=== PATIENT | male | born 1980 | race Caucasian/White ===

== ENCOUNTER → 2017-12-05 07:50 | Outpatient (CLI) | payer OTHER, SELFPAY ==
[2017-12-05 12:02] LABS: Anion Gap 10 (5-15); BUN 15 mg/dL (7-18); BUN/Creat Ratio 16.2 RATIO (10-20); Calcium,Total 8.1 mg/dL (8.5-10.1); Chloride 106 mmol/L (98-107); Cholesterol 157 mg/dL (200); Creatinine, Serum 0.92 mg/dL (0.70-1.30); EST Glomerular Filtration Rate 97 mL/min (>60); Est Glom Filt Rate - Afr Amer 117 mL/min (>60); Glucose 105 mg/dL (74-106); High Density Lipoprotein 30 mg/dL; Potassium 4.2 mmol/L (3.5-5.1); Sodium Level 142 mmol/L (136-145); Triglycerides 247 mg/dL; Very Low Density Lipoprotein 49 mg/dL (5-40)
== END ==
PROVIDERS: Family Provider Family Medicine; PCP Family Medicine; Visit Provider Family Medicine
DX: Z00.00 Encounter for general adult medical examination without abnormal findings (principal)
CPT/HCPCS: 36415; 80048; 80061

== ENCOUNTER 2018-01-30 09:33 | Day surgery (SDC) | payer OTHER, SELFPAY ==
[2018-01-30] VITALS (7 sets, daily range): BP systolic 117–139; BP diastolic 75–97; PULSE 60–76; RESP 14–16; TEMP 36.3–36.6; O2SAT 93–100; BMI 31.3
--- NOTE | 2018-01-30 10:30 | COLBX_PTH ---
PATIENT: SANTIAGO OLSON LOC: EN U#:[id number] AGE/SX: 37/M ROOM: RE01/30/[address]: Dr. Giorgi Nolasco MD : 1980 BED: DIS: 01/30/2018 SPEC #: [id number] RECD: 01/30/18 13:53 STATUS: JAMIN MARY #: [id number] MARCY: 01/30/18 10:[address]: Giorgi Nolasco DEPT: SURGICAL PATHOLOGY RECD BY: Godwin Sanchez ENTERED: 01/30/18 13:53 SP TYPE: COLON BX CAESAR DR: Dr. Manish Colon MD Tissues: A - Descending colon B - Sigmoid colon biopsy Procedures: Surgery Specimen Level IV HEADER OPERATION: Colonoscopy PRE-OP DIAGNOSIS: Rectal bleeding; change in bowel habit; family history of colon CA; grade 3 hemorrhoids TISSUE SUBMITTED: A ? Biopsy of descending colon polyp, B ? Sigmoid biopsy MICROSCOPIC DIAGNOSIS A. Descending colon polyp, biopsy: Fragments of tubular adenoma. B. Sigmoid colon, biopsy: No significant pathologic change. No evidence of colitis. AM:azeb 01/31/18 MICROSCOPIC DESCRIPTION Slides are reviewed. GROSS DESCRIPTION A - Received in fixative is one container labeled with the patient's name and designated descending colon polyp. The specimen consists of multiple irregular fragments of light herrera soft tissue that in aggregate measure 1 x 0.5 x 0.1 cm. The specimen is totally submitted in one cassette. B - Received in fixative is one container labeled with the patient's name and designated sigmoid biopsy. The specimen consists of two irregular fragments of light herrera soft tissue that in aggregate measure 0.6 x 0.5 x 0.1 cm. The specimen is totally submitted in one cassette. / AM:azeb 01/30/18 TC:5 [facility]: [id number] x2
--- NOTE | 2018-01-30 11:02 | PCM.OPRPT ---
Problem List (1) Family history of colon cancer in mother Status: Acute (2) Rectal bleeding Status: Acute Report of Operation Date of Procedure: 01/30/18 Pre-Operative Diagnosis: Change of bowel habits, rectal bleeding, family history of colon cancer in his mother Post-Operative Diagnosis: Grade 3 internal and external hemorrhoids. Sessile polyp of the descending colon. Sigmoid diverticulosis Surgery/Procedure Performed:: Colonoscopy with cold forcep biopsy and polypectomy Description of Surgical Findings:: Timeout and informed consent was obtained. 37-year-old gentleman was taken to the endoscopy suite. He was placed in a left lateral decubitus position. Throughout the procedure in aliquots he received a total of 150 mg Demerol and 5 mg of Versed is intravenous sedation. Digital rectal exam performed. Grade 3 internal hemorrhoids though without active bleeding. 2+ smooth prostate. Flexible colonoscope inserted the rectum and advanced readily throughout the sigmoid colon. It was advanced to the transverse colon and with transabdominal pressure was nicely advanced to the cecum. The cecum ileocecal valve area was nicely achieved bowel prep was good. There was still some liquid stool but that could be aspirated. The scope was carefully withdrawn from the ascending and transverse colon. In the descending colon a diminutive sessile 7 mm diameter polyp was identified. Photographs obtained. Cold forceps were used to sample and eradicate this lesion. Hemostasis was intact. The scope was then further withdrawn. There was sigmoid diverticulosis but no active inflammation. In the mid sigmoid there was a slight erythema of the mucosa. [place] likely to be secondary to the bowel prep but a mucosal biopsy with cold forceps was obtained. The scope was further withdrawn and retroflexed within the rectum. Some exuberant hemorrhoidal tissue noted particularly from internally. Excess fluid and air was aspirated free the procedure was completed with the patient tolerated it well. Impression Sessile polyp the descending colon pathology pending. Family history of colon cancer in her mother. Sigmoid diverticulosis Mild erythema of the sigmoid mucosa with cold forcep biopsy pending Significant internal hemorrhoids likely source of rectal bleeding Based upon family history will recommend follow-up colonoscopy in no greater than 5 years pending pathology on the polyp. We will recommend conservative measures for the internal hemorrhoids. If bleeding persists would recommend considering either a PPH hemorrhoidal pexy versus surgical hemorrhoidectomy. No previous colonoscopy. Medications were given at 1043. The procedure was started at 1046. The cecum was reached at 1050. The procedure was completed at 1057. Cc: Dr. Manish Nolasco M.D., F.A.C.S. Type of Anesthesia:: IV Sedation
== END 2018-01-30 11:57 | disposition home or self-care (01) ==
LOC: EN 09:34 → AC 09:35
PROVIDERS: Family Provider Family Medicine; PCP Family Medicine; Visit Provider Surgery
PROC: 0DJD8ZZ Inspection of Lower Intestinal Tract, Via Natural or Artificial Opening Endoscopic (ICD-10-PCS; CPT 45378; principal; 2018-01-30 10:25)
DX: D12.4 Benign neoplasm of descending colon (principal); K64.2 Third degree hemorrhoids; K57.30 Diverticulosis of large intestine without perforation or abscess without bleeding; K62.5 Hemorrhage of anus and rectum; R19.4 Change in bowel habit; F17.200 Nicotine dependence, unspecified, uncomplicated; Z80.0 Family history of malignant neoplasm of digestive organs
CPT/HCPCS: 45380; 88305; 99152; 99153

== ENCOUNTER → 2018-03-28 17:45 | Outpatient (CLI) | payer OTHER, SELFPAY ==
--- NOTE | 2018-03-28 17:48 | CT_ITS ---
STUDY: CT TEMPORAL BONES WITHOUT CONTRAST - ATTN: I.A.C. S REASON FOR EXAM: Male, 37 years old. CHOLESTEATOMA LEFT EAR RADIATION DOSAGE (If Supplied By Facility): CTDIvol = ( 67.58 ) mGy, DLP = ( 641.59 ) mGycm TECHNIQUE: The patient was scanned in a multi detector CT scanner. Transaxial imaging was performed without the administration of intravenous contrast material. Sagittal and coronal images were reconstructed. Individualized dose optimization techniques were used for this CT. COMPARISON: None. FINDINGS: There is mild maxillary sinus disease. RIGHT TEMPORAL BONE Normal right internal auditory canal. Normal visualized ossicles and tympanic cavity. Normal right cochlea and semicircular canals. Normal vestibular aqueduct. Normal right petrous carotid artery. Normal right jugular fossa. Normal right mastoid air cells. Normal right petrous apex. LEFT TEMPORAL BONE Normal left internal auditory canal. Normal visualized ossicles and tympanic cavity. Normal left cochlea and semicircular canals. Normal vestibular aqueduct. There is fluid in the left middle ear. There is no erosion of the scutum. Normal left petrous carotid artery. Normal right jugular fossa. There are minimal scattered inflammatory changes of the left mastoid air cells consistent with mild chronic otomastoiditis. Normal left petrous apex. CT/Orb Sella Post Fossa Ear w/o IMPRESSION: Left mastoiditis. Left otitis media. No evidence for cholesteatoma. Electronically Signed: Bernardo Barry MD at 19:42 EDT , Service support ,
== END ==
PROVIDERS: Family Provider Family Medicine; PCP Family Medicine; Referring Provider Otolaryngology; Visit Provider Otolaryngology
DX: H71.02 Cholesteatoma of attic, left ear (principal); H70.12 Chronic mastoiditis, left ear; H66.92 Otitis media, unspecified, left ear
CPT/HCPCS: 70480

== ENCOUNTER 2018-05-02 05:25 | Day surgery (SDC) | payer OTHER, SELFPAY ==
[2018-04-20 12:28] VITALS: BP 118/63; PULSE 69; RESP 16; TEMP 36.6; O2SAT 93; BMI 31.0
[2018-05-02] VITALS (7 sets, daily range): BP systolic 124–160; BP diastolic 75–89; PULSE 76–92; RESP 15–16; TEMP 36.9–37.4; O2SAT 90–94; BMI 31.5
--- NOTE | 2018-05-02 07:30 | CHO_PTH ---
PATIENT: SANTIAGO OLSON LOC: [facility] – [place], [place] U#:[id number] AGE/SX: 37/M ROOM: RE05/02/[address]: Dr. Nahid Macias MD : 1980 BED: DIS: 05/02/2018 SPEC #: [id number] RECD: 05/02/18 11:52 STATUS: JAMIN MARY #: [id number] MARCY: 05/02/18 07:[address]: Nahid Macias DEPT: SURGICAL PATHOLOGY RECD BY: Betsy Oviedo Tissues: Soft tissues, NOS Procedures: Decalcification bone/plaque Surgery Specimen Level III HEADER OPERATION: Tympanomastoidectomy, left ear PRE-OP DIAGNOSIS: Cholesteatoma of attic, left ear, conductive hearing loss, left ear, dysfunction of eustachian tube, left ear TISSUE SUBMITTED: Cholesteatoma, left ear MICROSCOPIC DIAGNOSIS Cholesteatoma of left ear, excision: Fragments of cholesteatoma with associated acute inflammation. Fragment of nerve. Fragments of bone with no pathologic change. AM:azeb 05/03/18 COMMENT Case has been reviewed in consultation with Dr. Ibarra who concurs with the above diagnosis. IDC:GUSTAVO MICROSCOPIC DESCRIPTION Slides are reviewed. GROSS DESCRIPTION Received in fixative is one container labeled with the patient's name and designated Cholesteatoma, left ear. The specimen consists of multiple irregular fragments of herrera-white to pink soft tissue that in aggregate measure 1.5 x 1.5 x 0.3 cm. The entire specimen is submitted in one cassette after light decalcification. / GUSTAVO:azeb 05/02/18 TC:5 CPT: 90113, 25559
[2018-05-02] MEDS: Bacitracin 500 UNITS/GM PACKET ×2 (09:30→09:31)
--- NOTE | 2018-05-02 10:28 | PCM.OPRPT ---
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 Volumetric assessment showed large conductive hearing loss and significant ossicular chain erosion on the CT scan was noted in the above procedures offered for relief as this caused him pain and drainage as well as the hearing loss. The risks, alternatives, potential benefits, and complications were discussed at length and any questions answered to the patient and/or caregiver's satisfaction. Witnessed informed consent was obtained in the office, and the patient and/or caregiver was agreeable to proceed. Procedure went as follows: The patient was identified in the preoperative holding brought to the operating room and was placed under general anesthesia and intubated. The operative ear had been site marked preoperatively in accordance with the office notes patient exam and history. The patient was then placed under general anesthesia and the left ear prepped and draped in usual sterile fashion. The facial nerve monitoring electrodes were then placed in the confirmed to be operational in accordance with the manufactures directions. The planned postauricular incision site for fascial graft harvest was then injected with 1% lidocaine with 100,000 epinephrine for a total of 5 mL. Through a #4 otic speculum the operative microscope was brought into the field and the external auditory canal and tympanic membrane visualized. The lateral canal wall was then injected with 1% lidocaine with 100,000 epinephrine for a total of 0.5 cc. Using a sickle knife the edge of the perforation was then sharply resected and withdrawn from the ear canal with a cup forceps. There is noted to be deep retraction into the attic and a large cholesteatoma. Using a round knife a vascular strip incision was then created and the skin flap developed toward the annulus. The middle ear cleft was then entered with a curved pick and the annulus elevated with the annulus elevator. This was then draped anteriorly to allow visualization of the middle ear cleft which is noted to be filled with granulation tissue and cholesteatoma. Epinephrine soaked cotton balls and placed for hemostasis and attention turned to the posterior auricular incision. A 6 cm incision was then created a 15 blade scalpel posterior to the auricle at the previous injection site. The skin and subcutaneous tissues were then dissected and the posterior auricular muscle sharply transected. The subfascial plane was then widely developed any 2.5 x 2.5 centimeter portion of loose areolar tissue then harvested and set aside on a Salvador block for reconstruction of the tympanic membrane. The wound edges were then cauterized. An incision was then made along the temporal line with the monopolar cautery 4 cm in length with an additional descending limb to the mastoid tip. Using a [place] elevator a periosteal flap was then elevated posteriorly and superiorly. Anteriorly the periosteal flap was developed with a [place] elevator and the self retraining retractor was then placed. Dissection was then carried down along the posterior aspect of the external auditory canal and the previously incised flap was then elevated with the retractor. A mastoidectomy was then carried out starting with a #6 cutting bur followed by a #4 jennifer. There is known to be extensive cholesteatoma filling the attic with erosion of the ossicles. Dissection was carried down along the posterior canal wall and the facial nerve identified and preserved this was confirmed with stimulation. The posterior canal wall was then removed and the chorda tympani which was densely involved with cholesteatoma was sacrificed and the facial ridge taken down low along the course of the facial nerve. The stapes superstructure was examined with the capitulum was noted to be absent however the anterior and posterior crura remained present. In the stasis was achieved by placement of cotton ball soaked with epinephrine. After removal the middle ear space was then examined. The middle ear space was then cleaned of granulation tissue and cholesteatoma and the previously harvested fascia graft was then placed in an underlay fashion over the residual stapes superstructure after filling the middle ear cleft and eustachian tube with Gelfoam packing material. Additional Gelfoam was then placed overlying the tympanic membrane reconstruction with the fascia graft. Meatal plasty incisions were then made through the auricular cartilage and the wound closed with interrupted 3-0 Vicryl sutures followed by running 5-0 Monocryl to the skin. Bacitracin ointment was then applied lateral to the graft and an Ambrus ear pack placed within the lateral canal to stent the meatal plasty. The patient then cleaned of prep solution and the facial nerve monitoring electrodes removed. The patient was then returned to anesthesia, revived and extubated without complication having tolerated the procedure well. Type of Anesthesia:: General Anesthesiologist: Luis Alberto Wong Special Medications: none Specimen's removed: cholesteatoma Drains: none Estimated Blood Loss (mL): 25 mL Fluids Replaced: 1000 mL Grafts/Implants Used: none - Complications none - Admit VTE Documentation VTE Present on Admission: No VTE Mechan Device Prophylaxis: SCD's VTE Pharm Prophylaxis ordered?: No
--- NOTE | 2018-05-02 10:40 | DCINST_ITS ---
- Discharge Diagnoses Current Active Problems: Current Active and Chronic Problems (Last Updated 01/25/18 @ 07:45 by Lora Salmeron) 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 (Chronic) You will use the following diet at home:: No restrictions Discharge Activity: Return to Normal Activity Call your doctor if your incision/area has: Continuous Slow Oozing, Increased Pain/ Swelling, Foul Smelling Discharge, Swelling at the incision site Call your doctor if you observe: Fever of 101 or Higher, Uncontrolled pain Cleanse incision/area with: Do not get Incision Wet, Keep Dressing Clean & Dry Allergies/Adverse Reactions: Allergies No Known Allergies Allergy (Verified 04/13/18 14:03) Medications to take at Discharge varenicline 1 mg tablet 1 mg PO BID 01/25/18 Primary Care Physician: Manish Colon MD [Primary Care Provider] - Test Results: Test results from this visit will be discussed in further detail at your follow- up appointment, if applicable. Please Follow Up With: Nahid Macias MD When: 5 days
--- OUTSIDE RECORDS SUMMARY | 2018-06-27 11:06 | XMS RPT_ITS ---
:1980 Author Organization OHIP Support Name Relationship Address Phone AKBAR, DHEERAJ Unavailable [address] + [place] [address] JOSE PATTON Unavailable Unavailable + [place] [address] S Unavailable Unavailable Unavailable AKBAR, DHEERAJ Unavailable [address] + [place] [address] KAROLYN PATTONKI Unavailable . + [place] [address] S Unavailable Unavailable Unavailable AKBAR, DHEERAJ Unavailable [address] + [place] [address] JOSE PATOTN Unavailable Unavailable + S Unavailable Unavailable Unavailable AKBAR, DHEERAJ Unavailable [address] + [place] [address] S Unavailable Unavailable Unavailable AKBAR, DHEERAJ Unavailable [address] + [place] [address] S Unavailable Unavailable Unavailable AKBAR, DHEERAJ Unavailable [address] + [place] [address] S Unavailable Unavailable Unavailable AKBAR, DHEERAJ Unavailable [address] + [place] [address] S Unavailable Unavailable Unavailable AKBAR, DHEERAJ Unavailable [address] + [place] [address] S Unavailable Unavailable Unavailable Care Team Providers Name Role Phone Giorgi Nolasco Attending Unavailable Manish Colon Referring Unavailable Manish Colon Attending Unavailable Manish Colon Referring Unavailable Manish Colon Primary Care Unavailable Giorgi Nolasco Attending Unavailable Manish Colon Referring Unavailable Manish Colon Primary Care Unavailable Giorgi Nolasco Attending Unavailable Manish Colon Primary Care Unavailable Giorgi Nolasco Referring Unavailable Giorgi Nolasco Attending Unavailable Giorgi Nolasco Referring Unavailable Manish Colon Primary Care Unavailable Giorgi Nolasco Consulting Unavailable Macias, Nahid Attending Unavailable Macias, Nahid Referring Unavailable Manish Colon Primary Care Unavailable Cebul, Giorgi Attending Unavailable Cebul, Giorgi Referring Unavailable Manish Colon Primary Care Unavailable Macias, Nahid Attending Unavailable Macias, Nahid Referring Unavailable Manish Colon Primary Care Unavailable PROBLEMS PROBLEMS DATE TYPE CONDITION / CODE ATTENDING STATUS SOURCE 05/21/2018 Unknown G89.18 - Other acute Giorgi Nolasco Active [facility] / G89.18(ICD-10) Hospital Repository 05/02/2018 Unknown Z01.818 - Encounter Nahid Macias Active [place] for other Community preprocedural Hospital examination / Repository Z01.818(ICD-10) 01/25/2018 Unknown K62.5 - Hemorrhage Giorgi Nolasco Active [place] of anus and rectum / Community K62.5(ICD-10) Hospital Repository 01/25/2018 Unknown Z80.0 - Family Giorgi Nolasco Active [place] history of malignant Community neoplasm of Hospital digestive organs / Repository Z80.0(ICD-10) 01/25/2018 Unknown Z72.0 - Tobacco use Giorgi Nolasco Active [place] / Z72.0(ICD-10) [facility] Hospital Repository 01/25/2018 Unknown R19.4 - Change in CeGiorgi spain Active [place] bowel habit / Community R19.4(ICD-10) Hospital Repository 01/25/2018 Unknown K64.2 - Third degree CebuGiorgi solares Active [place] hemorrhoids / Community K64.2(ICD-10) Hospital Repository 12/05/2017 Unknown Z00.00 - Encounter Manish Colon for general adult [facility] medical examination Hospital without abnormal Repository findings / Z00.00(ICD-10) PROCEDURES PROCEDURES No Procedure Records FoundRESULTS RESULTS DISCHARGE INSTRUCTION Observed: 05/21/2018 Status: F Source: [place] 5:29 PM [facility] REPOSITORY [facility] Medical Records Department [address] [place] [address] Instructions for Home/Discharge Instructions 05/21/18 0933 MR#: [id number] Acct: [id number] Name: SANTIAGO OLSON Rep #: [id number] : 1980 37 From: Giorgi Nolasco MD PCP: Manish Colon MD Status: DEP [facility] Discharge Diet: No Restrictions Discharge Activity: Return to Normal Activity, May Not Drive - while you are taking narcotic pain medications. Do not drive, work with heavy equipment or sign legal documents for 24 hours after your surgery. Additional Activity Instructions:: Please do not drive while taking narcotic pain medicine. Please take a daily fiber supplement. Please take 1 ounce of mineral oil in food or juice daily. You may utilize a sitz bath's of warm soapy water at 20 minutes per occasion as needed for comfort and hygiene. You may remove the Vaseline gauze dressing tomorrow morning. You may utilize dry gauze covered dressings Additional Dressing/Incision Instructions:: L Allergies/Adverse Reactions: Allergies No Known Allergies Allergy (Verified 05/14/18 14:57) Medications to take at Discharge varenicline 1 mg tablet 1 mg PO BID 01/25/18 Ibuprofen [Motrin] 400 mg PO Q6 PRN 05/14/18 Hydrocodone Bitart/Apap 5-325 [[place] 5MG-325MG] 1 tablet PO Q4H PRN PRN 5 Days #20 tablet 05/21/18 The following prescriptions were given: Hydrocodone Bitart/Apap 5-325 [[place] 5MG-325MG] 1 tablet PO Q4H PRN PRN 5 Days #20 tablet PRN Reason: Pain Primary Care Physician: Manish Colon MD [Primary Care Provider] - Test Results: Test results from this visit will be discussed in further detail at your follow-up appointment, if applicable. Please Follow Up With: Giorgi Nolasco MD - [phone] When: Plan to have a follow up approximately 3 weeks after surgery. 05/21/18 1729 <Electronically signed by Giorgi Nolasco MD> Date Giorgi Nolasco MD CC: Manish Colon MD OPERATIVE REPORT Observed: 05/21/2018 Status: F Source: [place] 5:29 PM [facility] REPOSITORY [facility] Medical Records Department [address] [place] [address] [place] [address] Operative Report 05/21/18 1042 MR#: [id number] Acct: [id number] Name: SANTIAGO OLSON Rep #: [id number] : 1980 37 From: Giorgi Nolasco MD PCP: Manish Colon MD Status: DEP [facility] Y Location: [facility] Problem List (1) Hemorrhoids Status: Acute Qualifiers: Hemorrhoid type: third degree Report of Operation Date of Procedure: 05/21/18 Pre-Operative Diagnosis: Bleeding internal and external hemorrhoids Post-Operative Diagnosis: Same Surgery/Procedure Performed:: Hemorrhoidectomy Description of Surgical Findings:: Timeout and informed consent was obtained. 37-year-old gent was taken to the operating room. He was placed prone on the table. He underwent monitored anesthesia care local anesthetic. Cefotetan 2 g given intravenously. Skin prep was placed and then taping was used to help expose the perineum. Clipper prepping and Betadine prepping performed. Initially I used 10 cc of 0.5% Marcaine and then throughout the remainder of the procedure I used 20 cc of Exparel diluted with 0.5% Marcaine to a total of 40 cc. That was utilized as local anesthetic. Patient had very exuberant particularly left lateral and also right lateral hemorrhoids with a smaller degree anteriorly. I addressed the left side first placed an apical suture of 2-0 chromic and then used Harmonic scalpel to excise the bulk of the hemorrhoidal disease. I approximated the mucosa with running 2-0 chromic. I performed a similar procedure on the left. I then used 0 chromic as a lanlpq-xf-[id number] suture at the very apex to help further secure that area. There was yet more hemorrhoidal tissue posteriorly this I secured with harmonics scalpel and then further approximately secure that with Estes scalpel and a hqlbcz-mr-[id number] suture of 2-0 chromic. At this point I felt that I had performed a generous resection of involved tissue. Great care had been taken to preserve the sphincter mechanism. I did not feel that further resection would be clarke due to the degree of indurated tissues. I placed dibucaine ointment on a Vaseline gauze inserted that per rectum. Covered dressings were applied. Sponge and instrument and needle counts were reported the surgeon be correct. Blood loss was minimal. He tolerated the procedure well was taken to the recovery area in satisfactory condition. It is of note that the patient was in a prone jackknife position. He did have some emesis during the procedure. I was instructed that some of that was solid suggesting that the patient had not been appropriately n.p.o. He was in a head down position there was no evidence of any aspiration. Specimens hemorrhoids. Drains none. Blood loss minimal. Giorgi Nolasco M.D., F.A.C.S. Type of Anesthesia:: Local MAC Anesthesiologist: Amish Hernandez 05/21/18 4589 <Electronically signed by Giorgi Nolasco MD> Date Giorgi Nolasco MD CC: Manish Colon MD; Giorgi Nolasco MD Signed 12 LEAD ELECTROCARDIOGRAM Observed: 05/18/2018 Status: F Source: [place] 9:[address] [facility] Cardiovascular Services [address] [place] [address] 12 Lead EKG 05/17/18 0950 MR#: [id number] Acct: [id number] Name: SANTIAGO OLSON Rep #: [id number] : 1980 37 From: Ricky Bowles MD Attending Dr: Giorgi Nolasco MD Status: PRE SDC Ordering Dr: Giorgi Nolasco MD Date: 05/17/18 Location: [facility] Sex: M C Admitted: Test Reason : PREOP Blood Pressure : / mmHG Vent. Rate : 069 BPM Atrial Rate : 069 BPM P-R Int : 144 ms QRS Dur : 070 ms QT Int : 356 ms P-R-T Axes : 070 038 049 degrees QTc Int : 381 ms Normal sinus rhythm Normal ECG Confirmed by RICKY BOWLES MD ([id number]), digital editor CIARA MOBLEY ([id number]) on 05/18/2018 9:17:23 AM Referred By: Giorgi Nolasco Confirmed By:RICKY BOWLES MD 05/18/18 0917 Date Ricky Bowles MD CC: Manish Colon MD; Giorgi Nolasco MD Signed CBC-COMPLETE BLOOD CNT Collected: 05/17/2018 Status: F Source: [place] NO DIFF 9:27 AM [facility] REPOSITORY TYPE CODE TESTS RESULT OUT OF RANGE REFERENCE UNITS LAB L100.1000 4.4-11.0 K/mm3 High WBC 11.6 LAB L100.1200 4.6-6.2 M/mm3 Low RBC 4.39 LAB L100.1300 13.0-16.5 g/dl Normal HGB 14.1 LAB L100.1400 40-54 % Normal HCT 42.0 LAB L100.1500 80-94 fL High MCV 95.7 LAB L100.1600 27.0-32.0 pg High MCH 32.1 LAB L100.1700 32-36 g/gl Normal MCHC 33.6 LAB L100.1810 11.6-14.6 % Normal RDW CV 12.8 LAB L100.1820 35.1-43.9 fl High RDW SD 44.6 LAB L100.1900 150-450 K/mm3 Normal PLT 261 LAB L100.2000 6.2-12.0 fl Normal MPV 10.1 Performed By: #### L100.0500 #### [facility] [address] [place], [address] BASIC METABOLIC Collected: 05/17/2018 Status: F Source: [place] PROFILE (BMP) 9:27 AM [facility] REPOSITORY TYPE CODE TESTS RESULT OUT OF RANGE REFERENCE UNITS LAB L501.0100 74-106 mg/dL High GLU 130 Result Comment: Fasting Glucose result greater than or equal to 126 mg/dL suggests DIABETES MELLITUS per A.D.A. criteria. Please note revised GLUCOSE reference range effective 2017. LAB L501.1000 7-18 mg/dL Normal BUN 15 LAB L501.1100 0.70-1.30 mg/dL Normal CREAT,SERUM 0.92 Result Comment: The validity of the calculated GFR AND GFRAA in patients over 70 years has not been determined. Clinical correlation is essential. LAB L501.1110 >60 mL/min Normal EST GFR 96 Result Comment: Non- GFR Calc LAB L501.1115 >60 mL/min Normal EST GFR - AA 117 Result Comment: GFR Calc LAB L501.1300 10-20 RATIO Normal BUN/CRE 16.2 LAB L501.2200 8.5-10.1 mg/dL Low CA 8.3 LAB L501.5300 136-145 mmol/L NA Normal 140 LAB L501.5600 3.5-5.1 mmol/L K Normal 4.2 LAB L501.5900 98-107 mmol/L High CL 108 LAB L501.6100 21.0-32.0 mmol/L Normal CO2 25.0 LAB L501.6200 5-15 Normal GAP 7 Performed By: #### L500.2500 #### [facility] [address] [place], [address] SURGERY VISIT REPORT Observed: 05/14/2018 Status: F Source: [place] 4:21 PM [facility] REPOSITORY [facility] 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 Is patient in pain?: No Allergies No Known Allergies Allergy (Verified 05/14/18 14:57) Medications varenicline 1 mg tablet 1 mg PO BID 01/25/18 [History Confirmed 05/14/18] Ibuprofen [Motrin] 400 mg PO Q6 PRN 05/14/18 [History Confirmed 05/14/18] PFSH Medical History Hemorrhoids (Acute) Family history of colon cancer in mother (Acute) Change in bowel habit (Acute) Rectal bleeding (Acute) Tobacco abuse (Acute) Family history of colon cancer (Acute) Hemorrhoids (Acute) Surgical History History of ankle surgery (Acute) History of hand surgery (Acute) Family History Mother Colon cancer Uncle Colon cancer Aunt Colon cancer Social History Smoking Status: Current every day smoker HPI HPI HPI: SANTIAGO OLSON is a 37 M who presents to the office today for ongoing surgical consultation regarding rectal bleeding. I initially saw him in the office on January 25, 2018. 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 As my previous note reflects his mother at age 36 had colon cancer. Almost on a daily basis he was having rectal bleeding. To help evaluate him on January 30, 2018 I performed a colonoscopy with cold forcep biopsy and polypectomy. A sessile polyp was seen in the descending colon. Sigmoid diverticulosis was identified. There was significant internal hemorrhoids stage III. The final pathology of the descending colon polyp was a tubular adenoma. A biopsy of an erythematous area of the sigmoid colon was nonspecific. He returns now to discuss treatment options regarding his symptomatic bleeding internal hemorrhoids. Is of note that May 02, [address] 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 My previous notes reflect the following: [id number] Name: SANTIAGO OLSON 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: No Is patient in pain?: No Allergies No Known Allergies Allergy (Verified 01/25/18 07:51) Medications varenicline 1 mg tablet 1 mg PO BID 01/25/18 [History Confirmed 01/25/18] PFSH Medical History Hemorrhoids (Acute) Family history of colon cancer in mother (Acute) Change in bowel habit (Acute) Rectal bleeding (Acute) Tobacco abuse (Acute) Family history of colon cancer (Acute) Hemorrhoids (Acute) Surgical History History of ankle surgery (Acute) History of hand surgery (Acute) Family History Mother Colon cancer Uncle Colon cancer Aunt Colon cancer Social History Smoking Status: Current every day smoker HPI HPI HPI: SANTIAGO OLSON, is a 37 M who presents to the office today for surgical consultation regarding significant change of bowel habits with constipation diarrhea or bright red blood per rectum feeling of fullness at the rectum. He believes he has hemorrhoidal disease. Topical treatment has not been beneficial. He has had progressive problems over the past 5 years but the past 1 year has been quite significant. It is of note that his mother at age 36 had colon cancer. He also has a maternal aunt and a maternal uncle had colon cancer. He has never had a colonoscopy. ROS General General: Yes fatigue; no weight change, appetite, colon cancer, breast cancer or weakness HEENT HEENT: No difficulty swallowing, eye injury, eye surgery, swollen glands or hoarseness Endo Endocrine: No thyroid disease, diabetes mellitus, thyroid cancer, Hair loss, heat intolerance or cold intolerance Musc Musculoskeletal: Yes back problems; no arthritis, rheumatoid arthritis, gout or joint pain Cardio Cardiovascular: No murmur, pacemaker, heart disease, atrial fibrillation, high blood pressure, heart attack, heart stent, palpitations, shortness of breat with exertion or chest pain Psych Psychiatric: Yes anxiety; no depression or hearing voices Resp Respiratory: No shortness of breath, No sleep apnea, No cough, No COPD, No asthma, No emphysema, No wheezing Gastro Gastrointestinal: Yes abdominal pain, No nausea or vomiting, No diarrhea, Yes constipation, Yes blood in stool, No acid reflux, Yes hemorrhoids, No ulcers, No gallbladder problem, No black,tarry stools Piter Hematologic: No blood thinners, No blood disorders, No bleeding, No anemia, No blood clots Neuro Neurologic: No weakness Exam Const General: cooperative, healthy appearing [facility] Head: normal to inspection Eyes General: appearance normal, both eyes and all related structures Resp Effort AND Inspection: normal respiratory effort Auscultation: clear to auscultation bilaterally Cardio Rate: regular rate Rhythm: regular rhythm Heart Sounds: no murmurs GI Palpation: soft, no hepatosplenomegaly Musc Cervical Spine: normal cervical lordosis Neuro General: CN's II-XI intact bilaterally Extrem General: no calf tenderness Psych Affect: normal affect Assessment AND Plan Problems 1. Tobacco abuse Z72.0 2. Rectal bleeding K62.5 3. Change in bowel habit R19.4 4. Family history of colon cancer in mother Z80.0 5. Grade III hemorrhoids K64.2 Plan 37-year-old gentleman with issues of significant change of bowel habits with diarrhea that frequently alternates with constipation with rectal bleeding. He does have known hemorrhoid disease. He has a family history of colon cancer and a mother who had colon cancer at age 36. The patient has never had a colonoscopy. On clinical examination he does have hemorrhoids. I have recommended to him that we proceed with a colonoscopy with possible biopsy or polypectomy is indicated. He is aware of the technique, benefits, risks and alternatives. The patient may benefit from future treatment of his grade 3 hemorrhoids. That can be determined at the time of his endoscopy. We will try to schedule and expedite his care Mother is Jay Patton Cc: Dr. Manish Nolasco M.D., F.A.C.S. Orders Orders: Colonoscopy Today K62.5, Z80.0 Coding Level of Care Code Off vis,new,level 2 Diagnoses Tobacco abuse Z72.0 Rectal bleeding K62.5 Change in bowel habit R19.4 Family history of colon cancer in mother Z80.0 Grade III hemorrhoids K64.2 Hemorrhoid type: third degree ROS General General: Yes fatigue; no weight change, appetite, colon cancer, breast cancer or weakness HEENT HEENT: No difficulty swallowing, eye injury, eye surgery, swollen glands or hoarseness Endo Endocrine: No thyroid disease, diabetes mellitus, thyroid cancer, Hair loss, heat intolerance or cold intolerance Musc Musculoskeletal: Yes back problems; no arthritis, rheumatoid arthritis, gout or joint pain Cardio Cardiovascular: No murmur, pacemaker, heart disease, atrial fibrillation, high blood pressure, heart attack, heart stent, palpitations, shortness of breat with exertion or chest pain Psych Psychiatric: Yes anxiety; no depression or hearing voices Resp Respiratory: No shortness of breath, No sleep apnea, No cough, No COPD, No asthma, No emphysema, No wheezing Gastro Gastrointestinal: Yes abdominal pain, No nausea or vomiting, No diarrhea, Yes constipation, Yes blood in stool, No acid reflux, Yes hemorrhoids, No ulcers, No gallbladder problem, No black,tarry stools Piter Hematologic: No blood thinners, No blood disorders, No bleeding, No anemia, No blood clots Neuro Neurologic: No weakness Exam Cardio Heart Sounds: no murmurs Assessment AND Plan Problems 1. Grade III hemorrhoids K64.2 Plan I again reviewed his clinical examination today. He has grade 3 internal hemorrhoids. He is young at age 37. He does significant amount of lifting and straining. With that in mind rather than pursuing a hemorrhoidal pexy I believe that he would be a better candidate for surgical hemorrhoidectomy. In great detail today I have discussed the technique, benefits, risks, alternatives. I have again reminded him that I advised that he initiate a daily fiber supplementation and I anticipate that for life. He has had an option to ask and have questions answered. I would think that this should be accomplished while under monitored anesthesia care and local anesthetic. He is scheduled for 1 week from today. This procedure is performed in a prone jackknife position. I will additionally send Dr. Nahid Macias a copy of this note. Giorgi Nolasco M.D., F.A.C.S. cc: Dr Manish Colon and Dr Nahid Macias Mother is Jay Patton Coding Level of Care Code Off vis,est,level 2 Diagnoses Grade III hemorrhoids K64.2 Hemorrhoid type: third degree 05/14/18 4589 <Electronically signed by Giorgi Nolasco MD> Date Giorgi Nolasco MD Cosigner Signature: Date (if applicable) CC: Nahid Macias MD; Manish Colon MD DISCHARGE INSTRUCTION Observed: 05/07/2018 Status: F Source: [place] 6:55 PM [facility] REPOSITORY [facility] Medical Records Department [address] [place] [address] Instructions for Home/Discharge Instructions 05/02/18 1039 MR#: [id number] Acct: [id number] Name: WESLEYSANTIAGO Robles Rep #: [id number] : 1980 37 From: Nahid Macias MD PCP: Status: DEP [place] - Discharge Diagnoses Current Active Problems: Current Active and Chronic Problems (Last Updated 01/25/18 @ 07:45 by Lora Salmeron) 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 (Chronic) You will use the following diet at home:: No restrictions Discharge Activity: Return to Normal Activity Call your doctor if your incision/area has: Continuous Slow Oozing, Increased Pain/ Swelling, Foul Smelling Discharge, Swelling at the incision site Call your doctor if you observe: Fever of 101 or Higher, Uncontrolled pain Cleanse incision/area with: Do not get Incision Wet, Keep Dressing Clean AND Dry Allergies/Adverse Reactions: Allergies No Known Allergies Allergy (Verified 04/13/18 14:03) Medications to take at Discharge varenicline 1 mg tablet 1 mg PO BID 01/25/18 Primary Care Physician: Manish Colon MD [Primary Care Provider] - Test Results: Test results from this visit will be discussed in further detail at your follow-up appointment, if applicable. Please Follow Up With: Nahid Macias MD When: 5 days 05/02/18 1040 <Electronically signed by Nahid Macias MD> Date Nahid Macias MD CC: OPERATIVE REPORT Observed: 05/02/2018 Status: F Source: [place] 10:39 AM [facility] REPOSITORY [facility] Medical Records Department [address] [place] [address] Operative Report 05/02/18 1028 MR#: [id number] Acct: [id number] Name: SANTIAGO OLSON Rep #: [id number] : 1980 37 From: Nahid Macias MD PCP: Status: REG SDC Y Location: [place] [address] Problem List (1) Cholesteatoma of attic of left ear Status: Chronic (2) Conductive hearing loss of left ear with unrestricted hearing of right ear Status: Chronic Report of Operation Date of Procedure: 05/02/18 Pre-Operative Diagnosis: Cholesteatoma left ear with conductive hearing loss Post-Operative Diagnosis: Same Surgery/Procedure Performed:: Left modified radical mastoidectomy with facial nerve monitoring Description of Surgical Findings:: Omid is a 37-year-old male with chronic progressive hearing loss in the left ear who was found to have a large attic cholesteatoma completely opacified mastoids based on CT scan. Volumetric assessment showed large conductive hearing loss and significant ossicular chain erosion on the CT scan was noted in the above procedures offered for relief as this caused him pain and drainage as well as the hearing loss. The risks, alternatives, potential benefits, and complications were discussed at length and any questions answered to the patient and/or caregiver's satisfaction. Witnessed informed consent was obtained in the office, and the patient and/or caregiver was agreeable to proceed. Procedure went as follows: The patient was identified in the preoperative holding brought to the operating room and was placed under general anesthesia and intubated. The operative ear had been site marked preoperatively in accordance with the office notes patient exam and history. The patient was then placed under general anesthesia and the left ear prepped and draped in usual sterile fashion. The facial nerve monitoring electrodes were then placed in the confirmed to be operational in accordance with the manufactures directions. The planned postauricular incision site for fascial graft harvest was then injected with 1% lidocaine with 100,000 epinephrine for a total of 5 mL. Through a #4 otic speculum the operative microscope was brought into the field and the external auditory canal and tympanic membrane visualized. The lateral canal wall was then injected with 1% lidocaine with 100,000 epinephrine for a total of 0.5 cc. Using a sickle knife the edge of the perforation was then sharply resected and withdrawn from the ear canal with a cup forceps. There is noted to be deep retraction into the attic and a large cholesteatoma. Using a round knife a vascular strip incision was then created and the skin flap developed toward the annulus. The middle ear cleft was then entered with a curved pick and the annulus elevated with the annulus elevator. This was then draped anteriorly to allow visualization of the middle ear cleft which is noted to be filled with granulation tissue and cholesteatoma. Epinephrine soaked cotton balls and placed for hemostasis and attention turned to the posterior auricular incision. A 6 cm incision was then created a 15 blade scalpel posterior to the auricle at the previous injection site. The skin and subcutaneous tissues were then dissected and the posterior auricular muscle sharply transected. The subfascial plane was then widely developed any 2.5 x 2.5 centimeter portion of loose areolar tissue then harvested and set aside on a Salvador block for reconstruction of the tympanic membrane. The wound edges were then cauterized. An incision was then made along the temporal line with the monopolar cautery 4 cm in length with an additional descending limb to the mastoid tip. Using a Lempert elevator a periosteal flap was then elevated posteriorly and superiorly. Anteriorly the periosteal flap was developed with a Raleigh elevator and the self retraining retractor was then placed. Dissection was then carried down along the posterior aspect of the external auditory canal and the previously incised flap was then elevated with the retractor. A mastoidectomy was then carried out starting with a #6 cutting bur followed by a #4 jennifer. There is known to be extensive cholesteatoma filling the attic with erosion of the ossicles. Dissection was carried down along the posterior canal wall and the facial nerve identified and preserved this was confirmed with stimulation. The posterior canal wall was then removed and the chorda tympani which was densely involved with cholesteatoma was sacrificed and the facial ridge taken down low along the course of the facial nerve. The stapes superstructure was examined with the capitulum was noted to be absent however the anterior and posterior crura remained present. In the stasis was achieved by placement of cotton ball soaked with epinephrine. After removal the middle ear space was then examined. The middle ear space was then cleaned of granulation tissue and cholesteatoma and the previously harvested fascia graft was then placed in an underlay fashion over the residual stapes superstructure after filling the middle ear cleft and eustachian tube with Gelfoam packing material. Additional Gelfoam was then placed overlying the tympanic membrane reconstruction with the fascia graft. Meatal plasty incisions were then made through the auricular cartilage and the wound closed with interrupted 3-0 Vicryl sutures followed by running 5-0 Monocryl to the skin. Bacitracin ointment was then applied lateral to the graft and an Ambrus ear pack placed within the lateral canal to stent the meatal plasty. The patient then cleaned of prep solution and the facial nerve monitoring electrodes removed. The patient was then returned to anesthesia, revived and extubated without complication having tolerated the procedure well. Type of Anesthesia:: General Anesthesiologist: Luis Alberto Wong Special Medications: none Specimen's removed: cholesteatoma Drains: none Estimated Blood Loss (mL): 25 mL Fluids Replaced: 1000 mL Grafts/Implants Used: none - Complications none - Admit VTE Documentation VTE Present on Admission: No VTE Mechan Device Prophylaxis: SCD's VTE Pharm Prophylaxis ordered?: No 05/02/18 1039 <Electronically signed by Nahid Macias MD> Date Nahid Macias MD CC: Nahid Macias MD Signed CHOLESTEATOMA Observed: 05/02/2018 Status: F Source: [place] 7:30 AM [facility] REPOSITORY Patient: SANTIAGO OLSON : 1980 (37/M) Acct Num: [id number] Phys: Unit Num: [id number] Loc: [facility] Specimen: [id number] Received: 05/02/18 - 1152 Spec Type: CHOLESTEAT TISSUES 1 TISSUES: Soft tissues, NOS - LEFT EAR COMMENT Case has been reviewed in consultation with Dr. Ibarra who concurs with the above diagnosis. IDC:GUSTAVO GROSS DESCRIPTION Received in fixative is one container labeled with the patient's name and designated Cholesteatoma, left ear. The specimen consists of multiple irregular fragments of herrera-white to pink soft tissue that in aggregate measure 1.5 x 1.5 x 0.3 cm. The entire specimen is submitted in one cassette after light decalcification. / GUSTAVO:azeb 05/02/18 TC:5 CPT: 26766, 98857 HEADER OPERATION: Tympanomastoidectomy, left ear PRE-OP DIAGNOSIS: Cholesteatoma of attic, left ear, conductive hearing loss, left ear, dysfunction of eustachian tube, left ear TISSUE SUBMITTED: Cholesteatoma, left ear MICROSCOPIC DESCRIPTION Slides are reviewed. MICROSCOPIC DIAGNOSIS Cholesteatoma of left ear, excision: Fragments of cholesteatoma with associated acute inflammation. Fragment of nerve. Fragments of bone with no pathologic change. AM:azeb 05/03/18 Signed Tulio Núñez 05/03/18 <signature on file> Performed By: #### PCHO #### [facility] [address] [place] [address]. [place], [address] ORB SELLA POST Observed: 03/28/2018 Status: F Source: [place] FOSSA EAR W/O 5:48 PM [facility] REPOSITORY [facility] Imaging [facility] [address] [address] [address] Orb Sella Post Fossa Ear w/o MR#: [id number] Acct: [id number] Name: SANTIAGO OLSON Rep #: [id number] : 1980 M 37 From: Bernardo Barry MD PCP: Manish Colon MD Status: REG CLI Study: Orb Sella Post Fossa Ear w/o Date of Exam: 03/28/18 Exam# [id number] Ordering Dr: Nahid Macias MD STUDY: CT TEMPORAL BONES WITHOUT CONTRAST - ATTN: I.A.C. S REASON FOR EXAM: Male, 37 years old. CHOLESTEATOMA LEFT EAR RADIATION DOSAGE (If Supplied By Facility): CTDIvol = ( 67.58 ) mGy, DLP = ( 641.59 ) mGycm TECHNIQUE: The patient was scanned in a multi detector CT scanner. Transaxial imaging was performed without the administration of intravenous contrast material. Sagittal and coronal images were reconstructed. Individualized dose optimization techniques were used for this CT. COMPARISON: None. FINDINGS: There is mild maxillary sinus disease. RIGHT TEMPORAL BONE Normal right internal auditory canal. Normal visualized ossicles and tympanic cavity. Normal right cochlea and semicircular canals. Normal vestibular aqueduct. Normal right petrous carotid artery. Normal right jugular fossa. Normal right mastoid air cells. Normal right petrous apex. LEFT TEMPORAL BONE Normal left internal auditory canal. Normal visualized ossicles and tympanic cavity. Normal left cochlea and semicircular canals. Normal vestibular aqueduct. There is fluid in the left middle ear. There is no erosion of the scutum. Normal left petrous carotid artery. Normal right jugular fossa. There are minimal scattered inflammatory changes of the left mastoid air cells consistent with mild chronic otomastoiditis. Normal left petrous apex. CT/Orb Sella Post Fossa Ear w/o IMPRESSION: Left mastoiditis. Left otitis media. No evidence for cholesteatoma. 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 OPERATIVE REPORT Observed: 01/30/2018 Status: F Source: [place] 11:07 AM [facility] REPOSITORY [facility] Medical Records Department [address] [place] [address] Operative Report 01/30/18 1102 MR#: [id number] Acct: [id number] Name: SANTIAGO OLSON Margaret Rep #: [id number] : 1980 37 From: Giorgi Nolasco MD PCP: Manish Colon MD Status: REG [facility] Y Location: [place] [address] Problem List (1) Family history of colon cancer in mother Status: Acute (2) Rectal bleeding Status: Acute Report of Operation Date of Procedure: 01/30/18 Pre-Operative Diagnosis: Change of bowel habits, rectal bleeding, family history of colon cancer in his mother Post-Operative Diagnosis: Grade 3 internal and external hemorrhoids. Sessile polyp of the descending colon. Sigmoid diverticulosis Surgery/Procedure Performed:: Colonoscopy with cold forcep biopsy and polypectomy Description of Surgical Findings:: Timeout and informed consent was obtained. 37-year-old gentleman was taken to the endoscopy suite. He was placed in a left lateral decubitus position. Throughout the procedure in aliquots he received a total of 150 mg Demerol and 5 mg of Versed is intravenous sedation. Digital rectal exam performed. Grade 3 internal hemorrhoids though without active bleeding. 2+ smooth prostate. Flexible colonoscope inserted the rectum and advanced readily throughout the sigmoid colon. It was advanced to the transverse colon and with transabdominal pressure was nicely advanced to the cecum. The cecum ileocecal valve area was nicely achieved bowel prep was good. There was still some liquid stool but that could be aspirated. The scope was carefully withdrawn from the ascending and transverse colon. In the descending colon a diminutive sessile 7 mm diameter polyp was identified. Photographs obtained. Cold forceps were used to sample and eradicate this lesion. Hemostasis was intact. The scope was then further withdrawn. There was sigmoid diverticulosis but no active inflammation. In the mid sigmoid there was a slight erythema of the mucosa. [place] likely to be secondary to the bowel prep but a mucosal biopsy with cold forceps was obtained. The scope was further withdrawn and retroflexed within the rectum. Some exuberant hemorrhoidal tissue noted particularly from internally. Excess fluid and air was aspirated free the procedure was completed with the patient tolerated it well. Impression Sessile polyp the descending colon pathology pending. Family history of colon cancer in her mother. Sigmoid diverticulosis Mild erythema of the sigmoid mucosa with cold forcep biopsy pending Significant internal hemorrhoids likely source of rectal bleeding Based upon family history will recommend follow-up colonoscopy in no greater than 5 years pending pathology on the polyp. We will recommend conservative measures for the internal hemorrhoids. If bleeding persists would recommend considering either a PPH hemorrhoidal pexy versus surgical hemorrhoidectomy. No previous colonoscopy. Medications were given at 1043. The procedure was started at 1046. The cecum was reached at 1050. The procedure was completed at 1057. Cc: Dr. Manish Nolasco M.D., F.A.C.S. Type of Anesthesia:: IV Sedation 01/30/18 1107 <Electronically signed by Giorgi Nolasco MD> Date Giorgi Nolasco MD CC: Manish Colon MD; Giorgi Nolasco MD Signed COLON BIOPSY (CHOOSE Observed: 01/30/2018 Status: F Source: [place] SITE) 10:30 AM [facility] REPOSITORY Patient: SANTIAGO OLSON : 1980 (37/M) Acct Num: [id number] Phys: Constance DAIGLE,Giorgi Unit Num: [id number] Loc: EN Specimen: [id number] Received: 01/30/18 - 1353 Spec Type: COLON BX TISSUES TISSUES: A. Descending colon B. Sigmoid colon biopsy GROSS DESCRIPTION A - Received in fixative is one container labeled with the patient's name and designated descending colon polyp. The specimen consists of multiple irregular fragments of light herrera soft tissue that in aggregate measure 1 x 0.5 x 0.1 cm. The specimen is totally submitted in one cassette. B - Received in fixative is one container labeled with the patient's name and designated sigmoid biopsy. The specimen consists of two irregular fragments of light herrera soft tissue that in aggregate measure 0.6 x 0.5 x 0.1 cm. The specimen is totally submitted in one cassette. / AM: 01/30/18 TC:5 CPT: 14354 x2 HEADER OPERATION: Colonoscopy PRE-OP DIAGNOSIS: Rectal bleeding; change in bowel habit; family history of colon CA; grade 3 hemorrhoids TISSUE SUBMITTED: A Biopsy of descending colon polyp, B Sigmoid biopsy MICROSCOPIC DESCRIPTION Slides are reviewed. MICROSCOPIC DIAGNOSIS A. Descending colon polyp, biopsy: Fragments of tubular adenoma. B. Sigmoid colon, biopsy: No significant pathologic change. No evidence of colitis. AM: 01/31/18 Signed Tulio Niya 01/31/18 <signature on file> Performed By: #### PCOLBX #### [facility] [address] [place], [address] SURGERY VISIT REPORT Observed: 01/25/2018 Status: F Source: [place] 8:07 AM [facility] 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 Is patient in pain?: No Allergies No Known Allergies Allergy (Verified 01/25/18 07:51) Medications varenicline 1 mg tablet 1 mg PO BID 01/25/18 [History Confirmed 01/25/18] PFSH Medical History Hemorrhoids (Acute) Family history of colon cancer in mother (Acute) Change in bowel habit (Acute) Rectal bleeding (Acute) Tobacco abuse (Acute) Family history of colon cancer (Acute) Hemorrhoids (Acute) Surgical History History of ankle surgery (Acute) History of hand surgery (Acute) Family History Mother Colon cancer Uncle Colon cancer Aunt Colon cancer Social History Smoking Status: Current every day smoker HPI HPI HPI: SANTIAGO OLSON, is a 37 M who presents to the office today for surgical consultation regarding significant change of bowel habits with constipation diarrhea or bright red blood per rectum feeling of fullness at the rectum. He believes he has hemorrhoidal disease. Topical treatment has not been beneficial. He has had progressive problems over the past 5 years but the past 1 year has been quite significant. It is of note that his mother at age 36 had colon cancer. He also has a maternal aunt and a maternal uncle had colon cancer. He has never had a colonoscopy. ROS General General: Yes fatigue; no weight change, appetite, colon cancer, breast cancer or weakness HEENT HEENT: No difficulty swallowing, eye injury, eye surgery, swollen glands or hoarseness Endo Endocrine: No thyroid disease, diabetes mellitus, thyroid cancer, Hair loss, heat intolerance or cold intolerance Musc Musculoskeletal: Yes back problems; no arthritis, rheumatoid arthritis, gout or joint pain Cardio Cardiovascular: No murmur, pacemaker, heart disease, atrial fibrillation, high blood pressure, heart attack, heart stent, palpitations, shortness of breat with exertion or chest pain Psych Psychiatric: Yes anxiety; no depression or hearing voices Resp Respiratory: No shortness of breath, No sleep apnea, No cough, No COPD, No asthma, No emphysema, No wheezing Gastro Gastrointestinal: Yes abdominal pain, No nausea or vomiting, No diarrhea, Yes constipation, Yes blood in stool, No acid reflux, Yes hemorrhoids, No ulcers, No gallbladder problem, No black,tarry stools Piter Hematologic: No blood thinners, No blood disorders, No bleeding, No anemia, No blood clots Neuro Neurologic: No weakness Exam Const General: cooperative, healthy appearing [facility] Head: normal to inspection Eyes General: appearance normal, both eyes and all related structures Resp Effort AND Inspection: normal respiratory effort Auscultation: clear to auscultation bilaterally Cardio Rate: regular rate Rhythm: regular rhythm Heart Sounds: no murmurs GI Palpation: soft, no hepatosplenomegaly Musc Cervical Spine: normal cervical lordosis Neuro General: CN's II-XI intact bilaterally Extrem General: no calf tenderness Psych Affect: normal affect Assessment AND Plan Problems 1. Tobacco abuse Z72.0 2. Rectal bleeding K62.5 3. Change in bowel habit R19.4 4. Family history of colon cancer in mother Z80.0 5. Grade III hemorrhoids K64.2 Plan 37-year-old gentleman with issues of significant change of bowel habits with diarrhea that frequently alternates with constipation with rectal bleeding. He does have known hemorrhoid disease. He has a family history of colon cancer and a mother who had colon cancer at age 36. The patient has never had a colonoscopy. On clinical examination he does have hemorrhoids. I have recommended to him that we proceed with a colonoscopy with possible biopsy or polypectomy is indicated. He is aware of the technique, benefits, risks and alternatives. The patient may benefit from future treatment of his grade 3 hemorrhoids. That can be determined at the time of his endoscopy. We will try to schedule and expedite his care Mother is Jay Patton Cc: Dr. Manish Nolasco M.D., F.A.C.S. Orders Orders: Coding Level of Care Code Off vis,new,level 2 Diagnoses Tobacco abuse Z72.0 Rectal bleeding K62.5 Change in bowel habit R19.4 Family history of colon cancer in mother Z80.0 Grade III hemorrhoids K64.2 Hemorrhoid type: third degree 01/25/18 0807 <Electronically signed by Giorgi Nolasco MD> Date Giorgi Nolasco MD Cosigner Signature: Date (if applicable) CC: Manish Colon MD BASIC METABOLIC Collected: 12/05/2017 Status: F Source: [place] PROFILE (BMP) 8:03 AM [facility] REPOSITORY TYPE CODE TESTS RESULT OUT OF RANGE REFERENCE UNITS LAB L501.0100 74-106 mg/dL Normal GLU 105 Result Comment: Fasting Glucose result from 100 to 125 mg/dL suggests IMPAIRED HOMEOSTASIS per A.D.A. criteria. Please note revised GLUCOSE reference range effective 2017. LAB L501.1000 7-18 mg/dL Normal BUN 15 LAB L501.1100 0.70-1.30 mg/dL Normal CREAT,SERUM 0.92 Result Comment: The validity of the calculated GFR AND GFRAA in patients over 70 years has not been determined. Clinical correlation is essential. LAB L501.1110 >60 mL/min Normal EST GFR 97 Result Comment: Non- GFR Calc LAB L501.1115 >60 mL/min Normal EST GFR - AA 117 Result Comment: GFR Calc LAB L501.1300 10-20 RATIO Normal BUN/CRE 16.2 LAB L501.2200 8.5-10.1 mg/dL Low CA 8.1 LAB L501.5300 136-145 mmol/L NA Normal 142 LAB L501.5600 3.5-5.1 mmol/L K Normal 4.2 LAB L501.5900 98-107 mmol/L CL Normal 106 LAB L501.6100 21.0-32.0 mmol/L Normal CO2 26.0 LAB L501.6200 5-15 Normal GAP 10 Performed By: #### L500.2500, L500.4100 #### [facility] [address] [place], [address] LIPID PROFILE Collected: 12/05/2017 Status: F Source: [place] 8:03 AM [facility] REPOSITORY TYPE CODE TESTS RESULT OUT OF RANGE REFERENCE UNITS LAB L501.4900 200 mg/dL Normal CHOL 157 Result Comment: <200 mg/dL Desirable 200-240 mg/dL Borderline >240 mg/dL High Risk LAB L501.5000 mg/dL High TRIG 247 Result Comment: The drugs N-Acetylcysteine and Metamizole may falsely depress this assay. Serum Triglycerides Reference Interval Normal <150 mg/dL Borderline high 150 - 199 mg/dL High 200 - 499 mg/dL Very High > or = 500 mg/dL LAB L501.6400 mg/dL Low HDL 30 Result Comment: The drugs N-Acetylcysteine and Metamizole may falsely depress this assay. Reference Range HDL <40 mg/dL Low HDL Cholesterol HDL >or= 60 mg/dL High HDL Cholesterol LAB L501.6500 0-130 mg/dL Normal LDL 78 LAB L501.6600 5-40 mg/dL High VLDL 49 Performed By: #### L500.2500, L500.4100 #### [facility] [address] [place], [address] ALLERGIES ALLERGIES DATE TYPE / CODE NAME / CODE REACTION SEVERITY SOURCE 05/14/2018 Drug No Known Unknown [facility] Allergy/4160 Allergies/F00 [facility] [address](SNOMED [id number](RXNOR Repository CT) M) ENCOUNTERS ENCOUNTERS ADMIT/DISCHARGE ACCOUNT ADMITTING ENCOUNTER LOCATION SOURCE NUMBER CLASS 05/21/2018/ [id number] Ambulatory Edgard Edgard 8 9 [facility] ing:SDCRoom: Repository AC07 05/14/2018/ [id number] Ambulatory BMSBuilding:B Graciela 8 6 MS.[facility] Repository 05/02/2018/ [id number] Ambulatory Graciela Graciela 8 0 [facility] ing:SDCRoom: Repository AC19 03/28/2018 [id number] Ambulatory Graciela Graciela 6 [facility] ing:CT Repository 01/30/2018/ [id number] Ambulatory Graciela Edgard 8 3 [facility] ing:ENRoom: Repository AC10 01/30/2018 [id number] Ambulatory BMSBuilding:B Edgard 6 MS.CF.[facility] Repository 01/25/2018/ [id number] Ambulatory BMSBuilding:B Graciela 8 8 MS.[facility] Repository 12/05/2017 [id number] Ambulatory Graciela Graciela 7 [facility] ing:MTLAB Repository PAYERS PAYERS ENCOUNTER GUARANTOR PAYER SUBSCRIBER SOURCE 05/21/2018 GENE D Primary Insurance:[facility] DHEERAJ E Graciela [id number] [facility] BARNERDOB: [facility] [id number]: Repository [id number]: 330 [id number] [phone] () Date:8630-25-43[address] [address]FVQZ[place]DSK, [place] [address]PE: CHECK WEBSITE 05/21/2018 Secondary NOT GIVENUNK Graciela Insurance:SELF PAY [facility] Number: Effective Repository Date:2018-04-02 05/14/2018 GENE D Primary Insurance:[facility] DHEERAJ BARNERDOB: Graciela [id number] [facility] [id number] Number: Repository [id number]: 330 [id number] [phone] () Date:3942-47-04[address] [address]KQ[place], [place] [address]EQ: CHECK WEBSITE 05/14/2018 Secondary NOT GIVENUNK Edgard Insurance:SELF PAY [facility] Number: Effective Repository Date:2018-05-11 05/02/2018 GENE D Primary Insurance:[facility] DHEERAJ BARNERDOB: Edgard [id number] [facility] [id number], [place] Number: Repository [id number]: 330 [id number] [phone] (HP) Date:4152-83-33[address] [address]GS[address]B, [place] [address]QU: CHECK WEBSITE 05/02/2018 Secondary NOT GIVENUNK Graciela Insurance:SELF PAY [facility] Number: Effective Repository Date:2018-04-25 03/28/2018 GENE D Primary Insurance:[facility] DHEERAJ WEBBERDOB: Edgardleeroy [id number] [facility] [id number], [place] Number: Repository [id number]: 330 [id number] [phone] (HP) Date:1327-41-42[address] [address]ZOFPKIAV, [place] [address]MB: CHECK WEBSITE 03/28/2018 Secondary NOT GIVENUNK Edgard Insurance:SELF PAY [facility] Number: Effective Repository Date:2018-03-21 01/30/2018 GENE D Primary Insurance:[facility] DHEERAJ WEBBERDOB: Graciela [id number] [facility] [id number], [place] Number: Repository [id number]: 330 [id number] [phone] () Date:4323-27-54UY [address], [place] [address]GD: CHECK WEBSITE 01/30/2018 Secondary NOT GIVENUNK Graciela Insurance:SELF PAY [facility] Number: Effective Repository Date:2018-01-25 01/30/2018 GENE D Primary Insurance:[facility] DHEERAJ WEBBERDOB: Graciela [id number] [facility] [id number] Number: Repository [id number]: 330 [id number] [phone] (HP) Date:3494-03-85XV [address] [address], [place] [address]IK: CHECK WEBSITE 01/30/2018 Secondary NOT GIVENUNK Edgard Insurance:SELF PAY [facility] Number: Effective Repository Date:2018-01-30 01/25/2018 GENE D Primary Insurance:[facility] DHEERAJ WEBBERDOB: Graciela [id number] [facility] [id number], [place] Number: Repository [id number]: 330 [id number] [phone] () Date:6724-47-17YJ [address] [address], [place] [address]AT: CHECK WEBSITE 01/25/2018 Secondary NOT GIVENUNK Graciela Insurance:SELF PAY [facility] Number: Effective Repository Date:2018-01-25 12/05/2017 Gene D Primary Insurance:[facility] DHEERAJ MARÍAB: Graciela [id number] [facility] [id number], [place] Number: Repository [id number]: 330 [id number] [phone] () Date:5214-86-06CL [address] [address], [place] [address]JQ: CHECK WEBSITE 12/05/2017 Secondary NOT GIVENUNK Edgard Insurance:SELF PAY [facility] Number: Effective Repository Date:2017-12-05
== END 2018-05-02 11:58 | disposition home or self-care (01) ==
LOC: SDC 05:25 → AC 05:26
PROVIDERS: Family Provider Family Medicine; PCP Family Medicine; Referring Provider Otolaryngology; Visit Provider Otolaryngology
PROC: (CPT 69641; principal; 2018-05-02 07:15)
DX: H71.02 Cholesteatoma of attic, left ear (principal); H90.12 Conductive hearing loss, unilateral, left ear, with unrestricted hearing on the contralateral side; H69.92 Unspecified Eustachian tube disorder, left ear; F17.200 Nicotine dependence, unspecified, uncomplicated; K21.9 Gastro-esophageal reflux disease without esophagitis; Z86.73 Personal history of transient ischemic attack (TIA), and cerebral infarction without residual deficits; Z79.899 Other long term (current) drug therapy
CPT/HCPCS: 00190; 69511; 88304; 88311; J7120; J2405

== ENCOUNTER 2018-05-21 08:18 | Day surgery (SDC) | payer OTHER, SELFPAY ==
[2018-05-14 14:57] VITALS: BMI 31.5
--- NOTE | 2018-05-17 09:36 | EKG12_ITS ---
Test Reason : PREOP Blood Pressure : / mmHG Vent. Rate : 069 BPM Atrial Rate : 069 BPM P-R Int : 144 ms QRS Dur : 070 ms QT Int : 356 ms P-R-T Axes : 070 038 049 degrees QTc Int : 381 ms Normal sinus rhythm Normal ECG Confirmed by NOE DAIGLE, BERTA ([id number]), film editor supervisor CIARA MOBLEY ([id number]) on 05/18/2018 9:17:23 AM Referred By: Giorgi Nolasco Confirmed By:BERTA LIU MD
[2018-05-17 09:53] LABS: Hemoglobin 14.1 g/dl (13.0-16.5); Mean Corp Hgb Conc 33.6 g/gl (32-36); Mean Corpuscular Hgb 32.1 pg (27.0-32.0); Mean Corpuscular Volume 95.7 fL (80-94); Mean Platelet Vol. 10.1 fl (6.2-12.0); Platelet Count 261 K/mm3 (150-450); RBC Distribution Width CV 12.8 % (11.6-14.6); RBC Distribution Width SD 44.6 fl (35.1-43.9); Red Blood Count 4.39 M/mm3 (4.6-6.2); White Blood Count 11.6 K/mm3 (4.4-11.0)
[2018-05-17 09:55] LABS: Scan Indicated on CBC? Y/N NO
[2018-05-17 10:23] LABS: BUN 15 mg/dL (7-18); Creatinine, Serum 0.92 mg/dL (0.70-1.30); Glucose 130 mg/dL (74-106)
[2018-05-17 10:24] LABS: Anion Gap 7 (5-15); BUN/Creat Ratio 16.2 RATIO (10-20); Calcium,Total 8.3 mg/dL (8.5-10.1); Chloride 108 mmol/L (98-107); EST Glomerular Filtration Rate 96 mL/min (>60); Est Glom Filt Rate - Afr Amer 117 mL/min (>60); Potassium 4.2 mmol/L (3.5-5.1); Sodium Level 140 mmol/L (136-145)
[2018-05-21] VITALS (7 sets, daily range): BP systolic 121–139; BP diastolic 67–92; PULSE 66–70; RESP 16; TEMP 36.4–36.8; O2SAT 93–96; BMI 31.4
[2018-05-21] MEDS: Fleet Enema 1 ML RECTAL (08:30)
--- NOTE | 2018-05-21 09:33 | PCM.DC.REC ---
Discharge Diet: No Restrictions Discharge Activity: Return to Normal Activity, May Not Drive - while you are taking narcotic pain medications. Do not drive, work with heavy equipment or sign legal documents for 24 hours after your surgery. Additional Activity Instructions:: Please do not drive while taking narcotic pain medicine. Please take a daily fiber supplement. Please take 1 ounce of mineral oil in food or juice daily. You may utilize a sitz bath's of warm soapy water at 20 minutes per occasion as needed for comfort and hygiene. You may remove the Vaseline gauze dressing tomorrow morning. You may utilize dry gauze covered dressings Additional Dressing/Incision Instructions:: L Allergies/Adverse Reactions: Allergies No Known Allergies Allergy (Verified 05/14/18 14:57) Medications to take at Discharge varenicline 1 mg tablet 1 mg PO BID 01/25/18 Ibuprofen [Motrin] 400 mg PO Q6 PRN 05/14/18 Hydrocodone Bitart/Apap 5-325 [[place] 5MG-325MG] 1 tablet PO Q4H PRN PRN 5 Days #20 tablet 05/21/18 The following prescriptions were given: Hydrocodone Bitart/Apap 5-325 [[place] 5MG-325MG] 1 tablet PO Q4H PRN PRN 5 Days #20 tablet PRN Reason: Pain Primary Care Physician: Manish Colon MD [Primary Care Provider] - Test Results: Test results from this visit will be discussed in further detail at your follow-up appointment, if applicable. Please Follow Up With: Giorgi Nolasco MD - [phone] When: Plan to have a follow up approximately 3 weeks after surgery.
[2018-05-21] MEDS: Lubricating Jelly 60 GM Tube 30 GM TOPICAL (09:57)
[2018-05-21] MEDS: Bupivacaine Mpf 0.5% 30 ML VIAL (10:00)
[2018-05-21] MEDS: BUPIVACAINE LIPOSOME/PF 20 ML VIAL OPERA.SITE (10:00)
[2018-05-21] MEDS: Dibucaine 30 GM Tube 1 APPLIC (10:30)
--- NOTE | 2018-05-21 10:42 | PCM.OPRPT ---
Problem List (1) Hemorrhoids Status: Acute Qualifiers: Hemorrhoid type: third degree Report of Operation Date of Procedure: 05/21/18 Pre-Operative Diagnosis: Bleeding internal and external hemorrhoids Post-Operative Diagnosis: Same Surgery/Procedure Performed:: Hemorrhoidectomy Description of Surgical Findings:: Timeout and informed consent was obtained. 37-year-old gent was taken to the operating room. He was placed prone on the table. He underwent monitored anesthesia care local anesthetic. Cefotetan 2 g given intravenously. Skin prep was placed and then taping was used to help expose the perineum. Clipper prepping and Betadine prepping performed. Initially I used 10 cc of 0.5% Marcaine and then throughout the remainder of the procedure I used 20 cc of Exparel diluted with 0.5% Marcaine to a total of 40 cc. That was utilized as local anesthetic. Patient had very exuberant particularly left lateral and also right lateral hemorrhoids with a smaller degree anteriorly. I addressed the left side first placed an apical suture of 2-0 chromic and then used Harmonic scalpel to excise the bulk of the hemorrhoidal disease. I approximated the mucosa with running 2-0 chromic. I performed a similar procedure on the left. I then used 0 chromic as a [id number] suture at the very apex to help further secure that area. There was yet more hemorrhoidal tissue posteriorly this I secured with harmonics scalpel and then further approximately secure that with Estes scalpel and a [id number]-eb-hestv suture of 2-0 chromic. At this point I felt that I had performed a generous resection of involved tissue. Great care had been taken to preserve the sphincter mechanism. I did not feel that further resection would be clarke due to the degree of indurated tissues. I placed dibucaine ointment on a Vaseline gauze inserted that per rectum. Covered dressings were applied. Sponge and instrument and needle counts were reported the surgeon be correct. Blood loss was minimal. He tolerated the procedure well was taken to the recovery area in satisfactory condition. It is of note that the patient was in a prone jackknife position. He did have some emesis during the procedure. I was instructed that some of that was solid suggesting that the patient had not been appropriately n.p.o. He was in a head down position there was no evidence of any aspiration. Specimens hemorrhoids. Drains none. Blood loss minimal. Giorgi Nolasco M.D., F.A.C.S. Type of Anesthesia:: Local MAC Anesthesiologist: Amish Hernandez
--- NOTE | 2018-05-21 10:45 | HEM_PTH ---
PATIENT: SANTIAGO OLSON [place] [facility] [place][id number] AGE/SX: 37/M ROOM: RE05/21/[address]: Dr. Giorgi Nolasco MD : 1980 BED: DIS: 05/21/2018 SPEC #: [id number] RECD: 05/21/18 15:33 STATUS: JAMIN REQuita #: [id number] MARCY: 05/21/18 10:[address]: Giorgi Nolasco DEPT: SURGICAL PATHOLOGY RECD BY: Raul Ly ENTERED: 05/22/18 11:53 SP TYPE: HEMORRHOID OTHR DR: Dr. Manish Colon MD Tissues: HEMORRHOIDS Procedures: Surgery Specimen Level III HEADER OPERATION: Hemorrhoidectomy PRE-OP DIAGNOSIS: Hemorrhoids TISSUE SUBMITTED: Hemorrhoids MICROSCOPIC DIAGNOSIS Hemorrhoids: Pieces of anorectal mucosa with dilated and congested blood vessels, consistent with hemorrhoids. GUSTAVO:azeb 12/19/18 MICROSCOPIC DESCRIPTION Slides are reviewed. GROSS DESCRIPTION Received in fixative is one container labeled with the patient's name and designated hemorrhoids. The specimen consists of two pieces of pink, congested mucosal tissue that in aggregate measure 3 x 4 x 2 cm. Sections reveal congested and hemorrhagic cut surfaces. Senior Label Specialist section from each piece is submitted in one cassette. / SJ:rg 05/22/18 TC:5 CPT: 10546
[2018-05-21] MEDS: HYDROcodone Bitartrate/Apap 5/325 Tablet PO (12:38)
[2018-05-21] MEDS: Gentamicin Sulfate 1 OPTH.BTL 1 DRP RIGHT EYE (12:43)
--- OUTSIDE RECORDS SUMMARY | 2018-08-22 19:19 | XMS RPT_ITS ---
:1980 Author Organization OHIP Support Name Relationship Address Phone AKBAR, DHEERAJ Unavailable [address] + [place] [address] GREEN, JOSE Unavailable . + [place] [address] S Unavailable Unavailable Unavailable AKBAR, DHEERAJ Unavailable [address] + [place] [address] GREEN, JOSE Unavailable . + [place] [address] S Unavailable Unavailable Unavailable AKBAR, DHEERAJ Unavailable [address] + [place] [address] GREEN, JOSE Unavailable . + [place] [address] S Unavailable Unavailable Unavailable AKBAR, DHEERAJ Unavailable [address] + [place] [address] GREEN, JOSE Unavailable Unavailable + [place] [address] S Unavailable Unavailable Unavailable AKBAR, DHEERAJ Unavailable [address] + [place] [address] GREEN, JOSE Unavailable Unavailable + [place] [address] S Unavailable Unavailable Unavailable AKBAR, DHEERAJ Unavailable [address] + [place] [address] GREEN, JOSE Unavailable . + [place] [address] S Unavailable Unavailable Unavailable AKBAR, DHEERAJ Unavailable [address] + [place] [address] GREEN, JOSE Unavailable Unavailable + S Unavailable Unavailable Unavailable AKBAR, DHEERAJ Unavailable [address] + [place] [address] S Unavailable Unavailable Unavailable AKBAR, DHEERAJ Unavailable [address] + [place] [address] S Unavailable Unavailable Unavailable AKBAR, DHEERAJ Unavailable [address] + [place] [address] S Unavailable Unavailable Unavailable AKBAR, DHEERAJ Unavailable [address] + [place] [address] S Unavailable Unavailable Unavailable AKBAR, DHEERAJ Unavailable [address] + [place] [address] S Unavailable Unavailable Unavailable Care Team Providers Name Role Phone Constance, Giorgi Attending Unavailable Colon, Manish Referring Unavailable Jelena, Ricky Attending Unavailable Cebul, Giorgi Referring Unavailable Colon, Manish Attending Unavailable Colon, Manish Referring Unavailable Colon, Manish Primary Care Unavailable Cebul, Giorgi Attending Unavailable Colon, Manish Referring Unavailable Cebul, Giorgi Attending Unavailable Colon, Manish Attending Unavailable Colon, Manish Primary Care Unavailable Cebul, Giorgi Attending Unavailable Colon, Manish Referring Unavailable Colon, Manish Primary Care Unavailable Cebul, Giorgi Attending Unavailable Colon, Manish Primary Care Unavailable Cebul, Giorgi Referring Unavailable Cebul, Giorgi Attending Unavailable Cebul, Giorgi Referring Unavailable Colon, Manish Primary Care Unavailable Cebul, Giorgi Consulting Unavailable Macias, Nahid Attending Unavailable Macias, Nahid Referring Unavailable Colon, Manish Primary Care Unavailable Cebul, Giorgi Attending Unavailable Cebul, Giorgi Referring Unavailable Colon, Manish Primary Care Unavailable Macias, Nahid Attending Unavailable Macias, Nahid Referring Unavailable Colon, Manish Primary Care Unavailable PROBLEMS PROBLEMS DATE TYPE CONDITION / CODE ATTENDING STATUS SOURCE 06/19/2018 Unknown K64.8 - Other Cebul, Giorgi Active [place] hemorrhoids / Community K64.8(ICD-10) Hospital Repository 05/21/2018 Unknown G89.18 - Other acute Cebul, Giorgi Active [place] postprocedural pain Community / G89.18(ICD-10) Hospital Repository 05/30/2018 Unknown Z01.810 - Encounter Jelena Dallas Active [place] for preprocedural Community cardiovascular Hospital examination / Repository Z01.810(ICD-10) 05/02/2018 Unknown Z01.818 - Encounter Macias Nahid Active [place] for other Community preprocedural Hospital examination / Repository Z01.818(ICD-10) 01/25/2018 Unknown K62.5 - Hemorrhage Giorgi Nolasco [place] of anus and rectum / Community K62.5(ICD-10) Hospital Repository 01/25/2018 Unknown Z80.0 - Family Giorgi Nolasco Active [place] history of malignant Community neoplasm of Hospital digestive organs / Repository Z80.0(ICD-10) 01/25/2018 Unknown Z72.0 - Tobacco use Giorgi Nolasco Active [place] / Z72.0(ICD-10) [facility] Hospital Repository 01/25/2018 Unknown R19.4 - Change in Giorgi Nolasco Active [place] bowel habit / Community R19.4(ICD-10) Hospital Repository 01/25/2018 Unknown K64.2 - Third degree JacquelinebuGiorgi solares [place] hemorrhoids / Community K64.2(ICD-10) Hospital Repository 12/05/2017 Unknown Z00.00 - Encounter Manish Colon [place] for general adult [facility] medical [facility] without abnormal Repository findings / Z00.00(ICD-10) PROCEDURES PROCEDURES No Procedure Records FoundRESULTS RESULTS BASIC METABOLIC Collected: 06/22/2018 Status: F Source: [place] PROFILE (BMP) 9:08 AM [facility] REPOSITORY TYPE CODE TESTS RESULT OUT OF RANGE REFERENCE UNITS LAB L501.0100 74-106 mg/dL Normal GLU 90 Result Comment: Please note revised GLUCOSE reference range effective 2017. LAB L501.1000 7-18 mg/dL Normal BUN 16 LAB L501.1100 0.70-1.30 mg/dL Normal CREAT,SERUM 0.83 Result Comment: The validity of the calculated GFR AND GFRAA in patients over 70 years has not been determined. Clinical correlation is essential. LAB L501.1110 >60 mL/min Normal EST GFR 109 Result Comment: Non- GFR Calc LAB L501.1115 >60 mL/min Normal EST GFR - AA 132 Result Comment: GFR Calc LAB L501.1300 10-20 RATIO Normal BUN/CRE 19.2 LAB L501.2200 8.5-10.1 mg/dL Low CA 8.4 LAB L501.5300 136-145 mmol/L NA Normal 141 LAB L501.5600 3.5-5.1 mmol/L K Normal 4.5 LAB L501.5900 98-107 mmol/L High CL 110 LAB L501.6100 21.0-32.0 mmol/L Normal CO2 25.0 LAB L501.6200 5-15 Normal GAP 6 Performed By: #### L500.2500, L500.4100 #### [facility] [address] [place], [address] LIPID PROFILE Collected: 06/22/2018 Status: F Source: [place] 9:08 AM [facility] REPOSITORY TYPE CODE TESTS RESULT OUT OF RANGE REFERENCE UNITS LAB L501.4900 200 mg/dL Normal CHOL 186 Result Comment: <200 mg/dL Desirable 200-240 mg/dL Borderline >240 mg/dL High Risk LAB L501.5000 mg/dL High TRIG 200 Result Comment: The drugs N-Acetylcysteine and Metamizole may falsely depress this assay. Serum Triglycerides Reference Interval Normal <150 mg/dL Borderline high 150 - 199 mg/dL High 200 - 499 mg/dL Very High > or = 500 mg/dL LAB L501.6400 mg/dL Low HDL 31 Result Comment: The drugs N-Acetylcysteine and Metamizole may falsely depress this assay. Reference Range HDL <40 mg/dL Low HDL Cholesterol HDL >or= 60 mg/dL High HDL Cholesterol LAB L501.6500 0-130 mg/dL Normal LDL 115 LAB L501.6600 5-40 mg/dL Normal VLDL 40 Performed By: #### L500.2500, L500.4100 #### [facility] [address] [place], [address] SURGERY VISIT REPORT Observed: 06/11/2018 Status: F Source: [place] 3:36 PM [facility] REPOSITORY [facility] [address] [place] [address] OFFICE VISIT Date of Service: 06/11/18 MR#: [id number] Acct: [id number] Name: SANTIAGO OLSON Rep #: [id number] : 1980 Provider: Giorgi Nolasco MD Age/Sex: 37/M Location: [facility] Status: Signed Intake Intake Visit Reasons: Hemorhroidectomy 05/21 Chief Complaint: update H AND P for hemorrhoidectomy 05-21 Allergies No Known Allergies Allergy (Verified 05/14/18 14:57) Medications varenicline 1 mg tablet 1 mg PO BID 01/25/18 [History Confirmed 05/14/18] Ibuprofen [Motrin] 400 mg PO Q6 PRN 05/14/18 [History Confirmed 05/14/18] hydrocodone 5 mg-acetaminophen 325 mg tablet 1 tab PO Q6H #10 tab 06/11/18 [Rx Confirmed 06/11/18] tamsulosin 0.4 mg capsule 0.4 mg PO DAILY #14 cap 06/11/18 [Rx Confirmed 06/11/18] Subjective Details: 37-year-old gentleman. He is status post a extensive internal and external surgical hemorrhoidectomy that are performed for him on May 21, 2018. Final pathology is consistent with anorectal mucosa and dilated congested blood vessels consistent with hemorrhoids. He is just starting to improve now. He still is having some intermittent bleeding. He takes a half of a [place] in the morning prior to having a bowel movement due to the amount of discomfort he is still having. He has had some urinary hesitancy. No dysuria. 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 He has not yet returned to work Objective Details: Perianal tissue appears very clean. No particular external tenderness Assessment AND Plan Plan I recommend to him that we initiate Flomax 0.4 mg daily for 2 weeks. I believe that this will assist leveling out his urinary frequency I have re-prescribe 10 tablets of [place] I have given him activity limitations and he is to return to work in 1 week but at that schedule likely part-time I would like to see him back in the office in 3-4 weeks for follow-up surgical evaluation and digital exam at that time He has had an opportunity to ask and have questions answered. I am very pleased with his current progress Mother Jay Lopez Giorgi Nolasco M.D., F.A.C.S. Medications New: Coding Level of Care Code Global Post Op 06/11/18 1536 <Electronically signed by Giorgi Nolasco MD> Date Giorgi Nolasco MD Cosigner Signature: Date (if applicable) CC: Manish Colon MD DISCHARGE INSTRUCTION Observed: 05/21/2018 Status: F Source: [place] 5:29 PM [facility] REPOSITORY [facility] Medical Records Department [address] [place] [address] Instructions for Home/Discharge Instructions 05/21/18 0933 MR#: [id number] Acct: [id number] Name: SANTIAGO OLSON Rep #: [id number] : 1980 37 From: Giorgi Nolasco MD PCP: Manish Colon MD Status: DEP [facility] Discharge Diet: No Restrictions Discharge Activity: Return [...] PO Q6 PRN 05/14/18 Hydrocodone Bitart/Apap 5-325 [[place] 5MG-325MG] 1 tablet PO Q4H PRN PRN 5 Days #20 tablet 05/21/18 The following prescriptions were given: Hydrocodone Bitart/Apap 5-325 [[place] 5MG-325MG] 1 tablet PO Q4H PRN PRN 5 Days #20 tablet PRN Reason: Pain Primary Care Physician: Manish Colon MD [Primary Care Provider] - Test Results: Test results from this visit will be discussed in further detail at your follow-up appointment, if applicable. Please Follow Up With: Giorgi Nolasco MD - [phone] When: Plan to have a follow up approximately 3 weeks after surgery. 05/21/18 1729 <Electronically signed by Giorgi Nolasco MD> Date Giorgi Nolasco MD CC: Manish Colon MD OPERATIVE REPORT Observed: 05/21/2018 Status: F Source: [place] 5:29 PM [facility] REPOSITORY [facility] Medical Records Department [address] [place] [address] Operative Report 05/21/18 1042 MR#: [id number] Acct: [id number] Name: SANTIAGO OLSON Rep #: [id number] : 1980 37 From: Giorgi Nolasco MD PCP: Manish Colon MD Status: [facility] Location: [facility] Problem List (1) Hemorrhoids Status: Acute Qualifiers: [...] I then used 0 chromic as a khjtno-hv-ufsjj suture at the very apex to help further secure that area. There was yet more hemorrhoidal tissue posteriorly this I secured with harmonics scalpel and then further approximately secure that with Estes scalpel and a iytivq-uw-jdlqf suture of 2-0 chromic. At this point [...] Anesthesia:: Local MAC Anesthesiologist: Amish Hernandez 05/21/18 5640 <Electronically signed by Giorgi Nolasco MD> Date Giorgi Nolasco MD CC: Manish Colon MD; Giorgi Nolasco MD Signed HEMORRHOIDS Observed: 05/21/2018 Status: F Source: [place] 10:45 AM [facility] REPOSITORY Patient: SANTIAGO OLSON : 1980 (37/M) Acct Num: [id number] Phys: Giorgi Nolasco MD Unit Num: [id number] Loc: [facility] Specimen: [id number] Received: 05/21/181532 Spec Type: HEMORRHOID TISSUES 1 TISSUES: HEMORRHOIDS GROSS DESCRIPTION Received in fixative is one container labeled with the patient's name and designated hemorrhoids. The specimen consists of two pieces of pink, congested mucosal tissue that in aggregate measure 3 x 4 x 2 cm. Sections reveal congested and hemorrhagic cut surfaces. Turn Laster section from each piece is submitted in one cassette. / GUSTAVO:azeb 05/22/18 TC:5 CPT: 70454 HEADER OPERATION: Hemorrhoidectomy PRE-OP DIAGNOSIS: Hemorrhoids TISSUE SUBMITTED: Hemorrhoids MICROSCOPIC DESCRIPTION Slides are reviewed. MICROSCOPIC DIAGNOSIS Hemorrhoids: Pieces of anorectal mucosa with dilated and congested blood vessels, consistent with hemorrhoids. SJ:azeb 05/23/18 Signed Thai Ibarra MD 05/23/18 <signature on file> Performed By: #### PHEM #### [facility] [address] [place], [address] 12 LEAD ELECTROCARDIOGRAM Observed: 05/18/2018 Status: F Source: [place] 9:18 AM [facility] REPOSITORY [facility] Cardiovascular Services [address] [place] [address] 12 Lead EKG 05/17/18 0950 MR#: [id number] Acct: [id number] Name: SANTIAGO OLSON Rep #: [id number] : 1980 37 From: Ricky Bowles MD Attending Dr: Giorgi Nolasco MD Status: PRE SDC Ordering Dr: Giorgi Nolasco MD Date: 05/17/18 Location: [facility] Sex: M C Admitted: Test Reason : PREOP Blood Pressure : / mmHG Vent. Rate : 069 BPM Atrial Rate : 069 BPM P-R Int : 144 ms QRS Dur : 070 ms QT Int : 356 ms P-R-T Axes : 070 038 049 degrees QTc Int : 381 ms Normal sinus rhythm Normal ECG Confirmed by RICKY BOWLES MD ([id number]), assistant editor CIARA MOBLEY ([id number]) on 05/18/2018 9:17:23 AM Referred By: Giorgi Nolasco Confirmed By:RICKY BOWLES MD 05/18/18 0917 Date Ricky Bowles MD CC: Manish Colon MD; Giorgi Nolasco MD Signed CBC-COMPLETE BLOOD CNT Collected: 05/17/2018 Status: F Source: [place] NO DIFF 9:27 AM [facility] REPOSITORY TYPE CODE TESTS RESULT OUT OF [...] MPV 10.1 Performed By: #### L100.0500 #### [facility] [address] [place], [address] BASIC METABOLIC Collected: 05/17/2018 Status: F Source: [place] PROFILE (BMP) 9:27 AM [facility] REPOSITORY TYPE CODE TESTS RESULT OUT OF [...] GAP 7 Performed By: #### L500.2500 #### [facility] [address] [place], [address] SURGERY VISIT REPORT Observed: 05/14/2018 Status: F Source: [place] 4:21 PM [facility] REPOSITORY [facility] [address] [place] [address] OFFICE VISIT Date of Service: 05/14/18 MR#: [id number] Acct: [id number] Name: SANTIAGO OLSON Margaret Rep #: [id number] : 1980 Provider: Giorgi Nolasco MD Age/Sex: 37/M Location: [facility] Status: Signed Intake Vital Signs05/14/18 Body Mass Index (BMI) 31.5 05/14/18 Blood Pressure 124/78 H Intake Visit Reasons: update h AND p hemorhroidectomy 05-21, wants to see Chief Complaint: update H AND P for hemorrhoidectomy 05-21 Commercial Collections Specialist Required: No Is patient in pain?: No [...] loss. My previous notes reflect the following: [id number]:[id number] Name: SANTIAGO OLSON [facility] #:[id number] : 1980 Provider:Giorgi Nolasco MD Age/Sex: 37/M Location:[facility] Status:Signed Intake Vital Signs 01/25/18 Height 5 [...] family history of colon cancer, rectal bleeding Commercial Collections Specialist Required: No Is patient in pain?: No [...] weakness Exam Const General: cooperative, healthy appearing [facility] Head: normal to inspection Eyes General: appearance [...] and expedite his care Mother is Jay Lopez Cc: Dr. Manish Nolasco M.D., F.A.C.S. Orders [...] and Dr Nahid Macias Mother is Jay Lopez Coding Level of Care Code Off vis,est,level 2 Diagnoses Grade III hemorrhoids K64.2 Hemorrhoid type: third degree 05/14/18 7291 <Electronically signed by Giorgi Nolasco MD> Date Giorgi Nolasco MD Cosigner Signature: Date (if applicable) CC: Nahid Macias MD; Manish Colon MD DISCHARGE INSTRUCTION Observed: 05/07/2018 Status: F Source: [place] 6:55 PM [facility] REPOSITORY [facility] Medical Records Department [address] [place] [address] Instructions for Home/Discharge Instructions 05/02/18 1039 MR#: [id number] Acct: [id number] Name: SANTIAGO OLSON Margaret Rep #: [id number] : 1980 37 From: Nahid Macias MD [...] 05/02/2018 Status: F Source: [place] 10:39 AM [facility] REPOSITORY [facility] Medical Records Department [address] [place] [address] Operative Report 05/02/18 1028 MR#: [id number] Acct: [id number] Name: SANTIAGO OLSON Rep #: [id number] : 1980 37 From: Nahid Macias MD PCP: Status: REG SDC Y Location: [place] [address] Problem List (1) Cholesteatoma of attic of [...] the periosteal flap was developed with a [place] elevator and the self retraining retractor was [...] Signed CHOLESTEATOMA Observed: 05/02/2018 Status: F Source: [place] 7:30 AM [facility] REPOSITORY Patient: SANTIAGO OLSON : 1980 (37/M) Acct Num: [id number] Phys: Unit Num: [id number] Loc: [facility] Specimen: [id number] Received: 05/02/18 - 1152 Spec Type: CHOLESTEAT [...] light decalcification. / GUSTAVO:azeb 05/02/18 TC:5 CPT: 69287, [address] HEADER OPERATION: Tympanomastoidectomy, left ear PRE-OP DIAGNOSIS: [...] on file> Performed By: #### PCHO #### [facility] [address] [place], [address] ORB SELLA POST Observed: 03/28/2018 Status: F Source: [place] FOSSA EAR W/O 5:48 PM [facility] REPOSITORY [facility] Imaging Services [address] [place] [address] [place] [address] Orb Sella Post Fossa Ear w/o MR#: [id number] Acct: [id number] Name: SANTIAGO OLSON Rep #: [id number] : 1980 M 37 From: Bernardo Barry MD PCP: Manish Colon MD Status: REG CLI Study: Orb Sella Post Fossa Ear w/o Date of Exam: 03/28/18 Exam# [id number] Ordering Dr: Nahid Macias MD STUDY: CT [...] CC: Nahid Macias MD; Manish Colon MD Data Collection Specialist: Signed OPERATIVE REPORT Observed: 01/30/2018 Status: F Source: [place] 11:07 AM [facility] REPOSITORY [facility] Medical Records Department [address] [place] [address] Operative Report 01/30/18 1102 MR#: [id number] Acct: [id number] Name: SANTIAGO OLSON Rep #: [id number] : 1980 37 From: Giorgi Nolasco MD PCP: Manish Colon MD Status: REG [facility] Y Location: [place] [address] Problem List (1) Family history of colon [...] was a slight erythema of the mucosa. [place] likely to be secondary to the bowel [...] BIOPSY (CHOOSE Observed: 01/30/2018 Status: F Source: [place] SITE) 10:30 AM [facility] REPOSITORY Patient: SANTIAGO OLSON : 1980 (37/M) Acct Num: [id number] Phys: Contsance DAIGLE,Giorgi Unit Num: [id number] Loc: [place] Specimen: [id number] Received: 01/30/18 - 1353 Spec Type: COLON [...] is totally submitted in one cassette. / AM:azeb 01/30/18 TC:5 CPT: 83623 x2 HEADER OPERATION: Colonoscopy PRE-OP DIAGNOSIS: Rectal bleeding; change in bowel habit; family history of colon CA; grade 3 hemorrhoids TISSUE SUBMITTED: A Biopsy of descending colon polyp, B Sigmoid biopsy MICROSCOPIC DESCRIPTION Slides are reviewed. MICROSCOPIC DIAGNOSIS A. Descending colon polyp, biopsy: Fragments of tubular adenoma. B. Sigmoid colon, biopsy: No significant pathologic change. No evidence of colitis. AM: 01/31/18 Signed Tulio Núñez 01/31/18 <signature on file> Performed By: #### PCOLBX #### [facility] [address] [place], [address] SURGERY VISIT REPORT Observed: 01/25/2018 Status: F Source: [place] 8:07 AM [facility] [address] [place] [address] OFFICE VISIT Date of Service: 01/25/18 MR#: [id number] Acct: [id number] Name: SANTIAGO OLSON Rep #: [id number] : 1980 Provider: Giorgi Nolasco MD Age/Sex: 37/M Location: [facility] Status: Signed Intake Vital Signs01/25/18 Height 5 ft 7 in 01/25/18 Weight: 200 lb 2 oz 01/25/18 Body Mass Index (BMI) 31.3 01/25/18 Blood Pressure 138/89 Intake Visit Reasons: C-Scope Screening AND Hemorrhoids Chief Complaint: family history of colon cancer, rectal bleeding Commercial Collections Specialist Required: No Is patient in pain?: No [...] weakness Exam Const General: cooperative, healthy appearing [place] Head: normal to inspection Eyes General: appearance [...] and expedite his care Mother is Jay Lopez Cc: Dr. Manish Nolasco M.D., F.A.C.S. Orders [...] F Source: [place] PROFILE (BMP) 8:03 AM [facility] REPOSITORY TYPE CODE TESTS RESULT OUT OF [...] 10 Performed By: #### L500.2500, L500.4100 #### [facility] [address] [place], [address] LIPID PROFILE Collected: 12/05/2017 Status: F Source: [place] 8:03 AM [facility] REPOSITORY TYPE CODE TESTS RESULT OUT OF [...] 49 Performed By: #### L500.2500, L500.4100 #### [facility] [address] [place], [address] ALLERGIES ALLERGIES DATE TYPE / CODE NAME / CODE REACTION SEVERITY SOURCE 05/14/2018 Drug No Known Unknown [facility] Allergy/4160 Allergies/F00 [facility] 01406(SNOMED 0394292(RXNOR Repository CT) M) ENCOUNTERS ENCOUNTERS ADMIT/DISCHARGE ACCOUNT ADMITTING ENCOUNTER LOCATION SOURCE NUMBER CLASS 06/22/2018 [id number] Ambulatory [place] 2 [facility] ing:MFPLAB Repository 06/11/2018/ [id number] Ambulatory BMSBuilding:B [place] 9 4 [facility] Repository 05/21/2018/ [id number] Ambulatory BMSBuilding:B [place] 8 6 MS.[facility] Repository 05/21/2018/ [id number] Amb[place] 8 9 [facility] ing:SDCRoom: Repository AC07 05/17/2018 [id number] Ambulatory BMSBuilding:W [place] 2 [facility] Repository 05/14/2018/ [id number] Ambulatory BMSBuilding:B [place] 8 6 [facility] Repository 05/02/2018/ [id number] Ambulatory [place] 8 0 [facility] ing:SDCRoom: Repository AC19 03/28/2018 [id number] Ambulatory [place] 6 [facility] ing:CT Repository 01/30/2018/ [id number] Amb[place] 8 3 [facility] ing:ENRoom: Repository AC10 01/30/2018 [id number] Ambulatory BMSBuilding:B [place] 6 MS.CF.[facility] Repository 01/25/2018/ [id number] Ambulatory BMSBuilding:B [place] 8 8 [facility] Repository 12/05/2017 [id number] Ambulatory [place] 7 [facility] ing:MTLAB Repository PAYERS PAYERS ENCOUNTER GUARANTOR PAYER SUBSCRIBER SOURCE 06/22/2018 GENE D Primary Insurance:[facility] DHEERAJ Owens [id number] [facility] LANCASTERNERDOB: [facility] [id number] Number: Repository [address]Hro: 330 [id number] [phone] () Date:8917-08-24LR [facility] [address], [place] [address]TP: CHECK WEBSITE 06/22/2018 Secondary NOT GIVENUNK [place] Insurance:SELF PAY [facility] Number: Effective Repository Date:2018-06-22 06/11/2018 GENE D Primary Insurance:[facility] DHEERAJ Owens [id number] [facility] [id number] Number: Repository [id number]: 330 [id number] [phone] () Date:[id number] [address], [place] [address]YE: CHECK WEBSITE 06/11/2018 Secondary NOT GIVENUNK [place] Insurance:SELF PAY [facility] Number: Effective Repository Date:2018-06-09 05/21/2018 GENE D Primary Insurance:[facility] DHEERAJ [id number] [facility] LANCASTERNERDOB: [facility] [id number] Number: Repository [id number]: 330 [id number] [phone]) Date:1256-32-55[address] [address]PGNBMWDGT, [place] [address]QQ: CHECK WEBSITE 05/21/2018 Secondary NOT GIVENUNK [place] Insurance:SELF PAY [facility] Number: Effective Repository Date:2018-05-21 05/21/2018 GENE D Primary Insurance:[facility] DHEERAJ BEYERCHINS[address] [facility] LANCASTERNERDOB: [facility] [id number] Number: Repository [id number]: 330 [id number] [phone]) Date:9985-55-06[address] [address]OILOVBQVM, [place] [address]DP: CHECK WEBSITE 05/21/2018 Secondary NOT GIVENUNK [place] Insurance:SELF PAY [facility] Number: Effective Repository Date:2018-04-02 05/17/2018 GENE D Primary Insurance:[facility] DHEERAJ BEYERCHINS3512 [facility] BARNERDOB: [facility] [id number] Number: Repository [address]Abv: 330 [id number] [phone]) Date:4452-18-84HB [address] [address]TKGIKHSDC, [place] [address]TJ: CHECK WEBSITE 05/17/2018 Secondary NOT GIVENUNK [place] Insurance:SELF PAY [facility] Number: Effective Repository Date:2018-05-17 05/14/2018 GENE D Primary Insurance:[facility] DHEERAJ BARNERDOB: [place] [id number] [facility] [id number], [place] Number: Repository [id number]: 330 [id number] [phone]) Date:5664-59-95[address] [address]NGGQBHMLX, [place] [address]QY: CHECK WEBSITE 05/14/2018 Secondary NOT GIVENUNK [place] Insurance:SELF PAY [facility] Number: Effective Repository Date:2018-05-11 05/02/2018 GENE D Primary Insurance:[facility] DHEERAJCRISS WRENNERDOB: [place]a [id number] [facility] [id number], [place] Number: Repository [id number]: 330 [id number] [phone]) Date:6056-47-82[address] [address]MUEHRIKOB, [place] [address]IW: CHECK WEBSITE 05/02/2018 Secondary NOT GIVENUNK [place] Insurance:SELF PAY [facility] Number: Effective Repository Date:2018-04-25 03/28/2018 GENE D Primary Insurance:[facility] DHEERAJ WEBBERDOB: [place] [id number] [facility] [id number], [place] Number: Repository [address]Pod: 330 [id number] [phone]) Date:2450-22-39OK [address] [address]XZPANKONR, [place] [address]PH: CHECK WEBSITE 03/28/2018 Secondary NOT GIVENUNK [place] Insurance:SELF PAY [facility] Number: Effective Repository Date:2018-03-21 01/30/2018 GENE D Primary Insurance:[facility] DHEERAJ WEBBERDOB: [place]iela [id number] [facility] [id number], [place] Number: Repository [id number]: 330 [id number] [phone]) Date:2491-10-55DV [address] [address]VFNYNLYXH, [place] [address]BS: CHECK WEBSITE 01/30/2018 Secondary NOT GIVENUNK [place] Insurance:SELF PAY [facility] Number: Effective Repository Date:2018-01-25 01/30/2018 GENE D Primary Insurance:[facility] D[facility] DUNN: [place]a [id number] [facility] [id number], [place] Number: Repository [address]Ard: 330 [id number] [phone]) Date:7948-46-30ER [address] [address]SJSYNYKLQ, [place] [address]IR: CHECK WEBSITE 01/30/2018 Secondary NOT GIVENUNK [place] Insurance:SELF PAY [facility] Number: Effective Repository Date:2018-01-30 01/25/2018 GENE D Primary Insurance:[facility] D[facility] DANIELB: [place]iel[place] [id number] [facility] 0015-04-18BXFMansfield, [place] Number: Repository [id number]: 330 [id number] [phone]) Date:2325-64-02KF [address] [address]YMSJQEQDW, [place] [address]PG: CHECK WEBSITE 01/25/2018 Secondary NOT GIVENUNK [place] Insurance:SELF PAY [facility] Number: Effective Repository Date:2018-01-25 12/05/2017 Gene D Primary Insurance:[facility] DUNN: [place]iela [id number] [facility] [id number], [place] Number: Repository [address]Uko: 330 [id number] [phone]) Date:5173-01-06KL [address] [address]GPILZRHSM, [place] [address]SY: CHECK WEBSITE 12/05/2017 Secondary NOT GIVENUNK [place] Insurance:SELF PAY [facility] Number: Effective Repository Date:2017-12-05
== END 2018-05-21 13:10 | disposition home or self-care (01) ==
LOC: SDC 08:19 → AC 08:20
PROVIDERS: Family Provider Family Medicine; PCP Family Medicine; Referring Provider Surgery; Visit Provider Surgery
PROC: (CPT 46260; principal; 2018-05-21 10:30)
DX: K64.2 Third degree hemorrhoids (principal); F17.200 Nicotine dependence, unspecified, uncomplicated; Z80.0 Family history of malignant neoplasm of digestive organs
CPT/HCPCS: 00902; 46260; 36415; 80048; 85027; 88304; 93005; J7120; A4216

== ENCOUNTER → 2018-06-22 09:06 | Outpatient (CLI) | payer OTHER, SELFPAY ==
[2018-05-21 08:44] VITALS: BMI 31.4
[2018-06-22 11:11] LABS: Anion Gap 6 (5-15); BUN 16 mg/dL (7-18); BUN/Creat Ratio 19.2 RATIO (10-20); Calcium,Total 8.4 mg/dL (8.5-10.1); Chloride 110 mmol/L (98-107); Cholesterol 186 mg/dL (200); Creatinine, Serum 0.83 mg/dL (0.70-1.30); EST Glomerular Filtration Rate 109 mL/min (>60); Est Glom Filt Rate - Afr Amer 132 mL/min (>60); Glucose 90 mg/dL (74-106); High Density Lipoprotein 31 mg/dL; Potassium 4.5 mmol/L (3.5-5.1); Sodium Level 141 mmol/L (136-145); Triglycerides 200 mg/dL; Very Low Density Lipoprotein 40 mg/dL (5-40)
--- OUTSIDE RECORDS SUMMARY | 2018-08-26 16:06 | XMS RPT_ITS ---
:1980 Author Organization OHIP Support Name Relationship Address Phone AKBAR, DHEERAJ Unavailable [address] + [place] [address] GREEN, JOSE Unavailable . + [place] [address] S Unavailable Unavailable Unavailable AKBAR, DHEERAJ Unavailable [address] + [place] [address] GREEN, JOSE Unavailable . + [place] [address] S Unavailable Unavailable Unavailable AKBAR, DHEERAJ Unavailable [address] + [place] [address] GREEN, JOSE Unavailable . + [place] [address] S Unavailable Unavailable Unavailable AKBAR, DHEERAJ Unavailable [address] + [place] [address] GREEN, JOSE Unavailable Unavailable + [place] [address] S Unavailable Unavailable Unavailable AKBAR, DHEERAJ Unavailable [address] + [place] [address] GREEN, JOSE Unavailable Unavailable + [place] [address] S Unavailable Unavailable Unavailable AKBAR, DHEERAJ Unavailable [address] + [place] [address] GREEN, JOSE Unavailable . + [place] [address] S Unavailable Unavailable Unavailable AKBAR, DHEERAJ Unavailable [address] + [place] [address] GREEN, JOSE Unavailable Unavailable + S Unavailable Unavailable Unavailable AKBAR, DHEERAJ Unavailable [address] + [place] [address] S Unavailable Unavailable Unavailable AKBAR, DHEERAJ Unavailable [address] + [place] [address] S Unavailable Unavailable Unavailable AKBAR, DHEERAJ Unavailable [address] + [place] [address] S Unavailable Unavailable Unavailable AKBAR, DHEERAJ Unavailable [address] + [place] [address] S Unavailable Unavailable Unavailable AKBAR, DHEERAJ Unavailable [address] + [place] [address] S Unavailable Unavailable Unavailable Care Team Providers Name Role Phone Constance, Giorgi Attending Unavailable Colon, Manish Referring Unavailable Jelena, Ricky Attending Unavailable Cebul, Giorgi Referring Unavailable Cebul, Giorgi Attending Unavailable Colon, Manish Referring Unavailable Cebul, Giorgi Attending Unavailable Colon, Manish Attending Unavailable Colon, Manish Primary Care Unavailable Colon, Manish Attending Unavailable Colon, Manish [...] G89.18 - Other acute Cebul, Giorgi Active [place] postprocedural pain Community / G89.18(ICD-10) Hospital Repository 05/30/2018 Unknown Z01.810 - Encounter Jelena, [place] Active [place] for preprocedural Community cardiovascular Hospital examination / Repository Z01.810(ICD-10) 05/02/2018 Unknown Z01.818 - Encounter Macias, Nahid Active [place] for other Community preprocedural Hospital examination / Repository Z01.818(ICD-10) 01/25/2018 Unknown K62.5 - Hemorrhage Giorgi Nolasco [place] of anus and rectum / Community K62.5(ICD-10) Hospital Repository 01/25/2018 Unknown Z80.0 - Family Giorgi Nolasco Active [place] history of malignant Community neoplasm of Hospital digestive organs / Repository Z80.0(ICD-10) 01/25/2018 Unknown Z72.0 - Tobacco use Giorgi Nolasco Active [place] / Z72.0(ICD-10) [facility] Hospital Repository 01/25/2018 Unknown R19.4 - Change in Giorgi Nolasco Active [place] bowel habit / Community R19.4(ICD-10) Hospital Repository 01/25/2018 Unknown K64.2 - Third degree JacquelinebuGiorgi solares [place] hemorrhoids / Community K64.2(ICD-10) Hospital Repository 12/05/2017 Unknown Z00.00 - Encounter Manish Colon [place] for general adult [facility] medical [facility] without abnormal Repository findings / Z00.00(ICD-10) PROCEDURES PROCEDURES No Procedure Records FoundRESULTS RESULTS BASIC METABOLIC Collected: 06/22/2018 Status: F Source: [place] PROFILE (BMP) 9:08 AM [facility] REPOSITORY TYPE CODE TESTS RESULT OUT OF [...] 6 Performed By: #### L500.2500, L500.4100 #### [facility] [address] [place], [address] LIPID PROFILE Collected: 06/22/2018 Status: F Source: [place] 9:08 AM [facility] REPOSITORY TYPE CODE TESTS RESULT OUT OF [...] 40 Performed By: #### L500.2500, L500.4100 #### [facility] [address] [place], [address] SURGERY VISIT REPORT Observed: 06/11/2018 Status: F Source: [place] 3:36 PM [facility] REPOSITORY [facility] [address] [place] [address] OFFICE VISIT Date of Service: 06/11/18 MR#: [id number] Acct: [id number] Name: SANTIAGO OLSON Rep #: [id number] : 1980 Provider: Giorgi Nolasco MD Age/Sex: 37/M Location: [facility] Status: Signed Intake Intake Visit Reasons: Hemorhroidectomy [...] bleeding. He takes a half of a [place] in the morning prior to having a [...] frequency I have re-prescribe 10 tablets of [place] I have given him activity limitations and [...] 05/21/2018 Status: F Source: [place] 5:29 PM [facility] REPOSITORY [facility] Medical Records Department [address] [place] [address] Instructions for Home/Discharge Instructions 05/21/18 0933 MR#: [id number] Acct: [id number] Name: SANTIAGO OLSON Rep #: [id number] : 1980 37 From: Giorgi Nolasco MD PCP: Manish Colon MD Status: DEP [facility] Discharge Diet: No Restrictions Discharge Activity: Return [...] PO Q6 PRN 05/14/18 Hydrocodone Bitart/Apap 5-325 [[place] 5MG-325MG] 1 tablet PO Q4H PRN PRN 5 Days #20 tablet 05/21/18 The following prescriptions were given: Hydrocodone Bitart/Apap 5-325 [[place] 5MG-325MG] 1 tablet PO Q4H PRN PRN 5 Days #20 tablet PRN Reason: Pain Primary Care Physician: Manish Colon MD [Primary Care Provider] - Test Results: Test results from this visit will be discussed in further detail at your follow-up appointment, if applicable. Please Follow Up With: Giorgi Nolasco MD - [phone] When: Plan to have a follow up approximately 3 weeks after surgery. 05/21/18 1729 <Electronically signed by Giorgi Nolasco MD> Date Giorgi Nolasco MD CC: Manish Colon MD OPERATIVE REPORT Observed: 05/21/2018 Status: F Source: [place] 5:29 PM [facility] REPOSITORY [facility] Medical Records Department [address] [place] [address] Operative Report 05/21/18 1042 MR#: [id number] Acct: [id number] Name: SANTIAGO OLSON Rep #: [id number] : 1980 37 From: Giorgi Nolasco MD PCP: Manish Colon MD Status: [facility] Y Location: [facility] Problem List (1) Hemorrhoids Status: Acute Qualifiers: [...] I then used 0 chromic as a momesl-pv-eklob suture at the very apex to help further secure that area. There was yet more hemorrhoidal tissue posteriorly this I secured with harmonics scalpel and then further approximately secure that with Estes scalpel and a teyazg-os-qufrg suture of 2-0 chromic. At this point [...] Anesthesia:: Local MAC Anesthesiologist: Amish Hernandez 05/21/18 8975 <Electronically signed by Giorgi Nolasco MD> Date Giorgi Nolasco MD CC: Manish Colon MD; Giorgi Nolasco MD Signed HEMORRHOIDS Observed: 05/21/2018 Status: F Source: [place] 10:45 AM [facility] REPOSITORY Patient: SANTIAGO OLSON : 1980 (37/M) Acct Num: [id number] Phys: Giorgi Nolasco MD Unit Num: [id number] Loc: [facility] Specimen: [id number] Received: 05/21/181532 Spec Type: HEMORRHOID TISSUES 1 TISSUES: HEMORRHOIDS GROSS DESCRIPTION Received in fixative is one container labeled with the patient's name and designated hemorrhoids. The specimen consists of two pieces of pink, congested mucosal tissue that in aggregate measure 3 x 4 x 2 cm. Sections reveal congested and hemorrhagic cut surfaces. Entry Level Administrative Assistant section from each piece is submitted in one cassette. / GUSTAVO:azeb 05/22/18 TC:5 CPT: 98988 HEADER OPERATION: Hemorrhoidectomy PRE-OP DIAGNOSIS: Hemorrhoids TISSUE SUBMITTED: Hemorrhoids MICROSCOPIC DESCRIPTION Slides are reviewed. MICROSCOPIC DIAGNOSIS Hemorrhoids: Pieces of anorectal mucosa with dilated and congested blood vessels, consistent with hemorrhoids. SJ:azeb 05/23/18 Signed Thai Ibarra MD 05/23/18 <signature on file> Performed By: #### PHEM #### [facility] [address] [place], [address] 12 LEAD ELECTROCARDIOGRAM Observed: 05/18/2018 Status: F Source: [place] 9:18 AM [facility] REPOSITORY [facility] Cardiovascular Services [address] [place] [address] 12 Lead EKG 05/17/18 0950 MR#: [id number] Acct: [id number] Name: SANTIAGO OLSON Rep #: [id number] : 1980 37 From: Ricky Bowles MD Attending Dr: Giorgi Nolasco MD Status: PRE SDC Ordering Dr: Giorgi Nolasco MD Date: 05/17/18 Location: [facility] Sex: M C Admitted: Test Reason : PREOP Blood Pressure : / mmHG Vent. Rate : 069 BPM Atrial Rate : 069 BPM P-R Int : 144 ms QRS Dur : 070 ms QT Int : 356 ms P-R-T Axes : 070 038 049 degrees QTc Int : 381 ms Normal sinus rhythm Normal ECG Confirmed by RICKY BOWLES MD ([id number]), editor index CIARA MOBLEY ([id number]) on 05/18/2018 9:17:23 AM Referred By: Giorgi Nolasco Confirmed By:RICKY BOWLES MD 05/18/18 0917 Date Ricky Bowles MD CC: Manish Colon MD; Giorgi Nolasco MD Signed CBC-COMPLETE BLOOD CNT Collected: 05/17/2018 Status: F Source: [place] NO DIFF 9:27 AM [facility] REPOSITORY TYPE CODE TESTS RESULT OUT OF [...] MPV 10.1 Performed By: #### L100.0500 #### [facility] [address] [place], [address] BASIC METABOLIC Collected: 05/17/2018 Status: F Source: [place] PROFILE (BMP) 9:27 AM [facility] REPOSITORY TYPE CODE TESTS RESULT OUT OF [...] GAP 7 Performed By: #### L500.2500 #### [facility] [address] [place], [address] SURGERY VISIT REPORT Observed: 05/14/2018 Status: F Source: [place] 4:21 PM [facility] REPOSITORY [facility] [place] [facility] [address] [place] [address] OFFICE VISIT Date of Service: 05/14/18 MR#: [id number] Acct: [id number] Name: SANTIAGO OLSON Margaret Rep #: [id number] : 1980 Provider: Giorgi Nolasco MD Age/Sex: 37/M Location: [facility] Status: Signed Intake Vital Signs05/14/18 Body Mass Index (BMI) 31.5 05/14/18 Blood Pressure 124/78 H Intake Visit Reasons: update h AND p hemorhroidectomy 05-21, wants to see Chief Complaint: update H AND P for hemorrhoidectomy 05-21 Floor Worker Required: No Is patient in pain?: No [...] loss. My previous notes reflect the following: [id number]:[id number] Name: SANTIAGO OLSON [facility] #:[id number] : 1980 Provider:Giorgi Nolasco MD Age/Sex: 37/M Location:[facility] Status:Signed Intake Vital Signs 01/25/18 Height 5 [...] family history of colon cancer, rectal bleeding Floor Worker Required: No Is patient in pain?: No [...] position. I will additionally send Dr. Nahid Mcaias a copy of this note. Giorgi Nolasco M.D., F.A.C.S. cc: Dr Manish Colon and Dr Nahid Macias Mother is Jay Lopez Coding Level of Care Code Off vis,est,level 2 Diagnoses Grade III hemorrhoids K64.2 Hemorrhoid type: third degree 05/14/18 7870 <Electronically signed by Giorgi Nolasco MD> Date Giorgi Nolasco MD Cosigner Signature: Date (if applicable) CC: Nahid Macias MD; Manish Colon MD DISCHARGE INSTRUCTION Observed: 05/07/2018 Status: F Source: [place] 6:55 PM [facility] REPOSITORY [facility] Medical Records Department [address] [place] [address] Instructions for Home/Discharge Instructions 05/02/18 1039 MR#: [id number] Acct: [id number] Name: SANITAGO OLSON Margaret Rep #: [id number] : 1980 37 From: Nahid Macias MD [...] 05/02/2018 Status: F Source: [place] 10:39 AM [facility] REPOSITORY [facility] Medical Records Department [address] [place] [address] Operative Report 05/02/18 1028 MR#: [id number] Acct: [id number] Name: SANTIAGO OLSON Rep #: [id number] : 1980 37 From: Nahid Macias MD PCP: Status: REG SDC Y Location: [place] [address] Problem List (1) Cholesteatoma of attic of [...] the periosteal flap was developed with a Biscoe elevator and the self retraining retractor was [...] Signed CHOLESTEATOMA Observed: 05/02/2018 Status: F Source: [place] 7:30 AM [facility] REPOSITORY Patient: SANTIAGO OLSON : 1980 (37/M) Acct Num: [id number] Phys: Unit Num: [id number] Loc: [facility] Specimen: [id number] Received: 05/02/18 - 1152 Spec Type: CHOLESTEAT [...] light decalcification. / GUSTAVO:azeb 05/02/18 TC:5 CPT: 60939, 95130 HEADER OPERATION: Tympanomastoidectomy, left ear PRE-OP DIAGNOSIS: [...] on file> Performed By: #### PCHO #### [facility] [address] [place], [address] ORB SELLA POST Observed: 03/28/2018 Status: F Source: [place] FOSSA EAR W/O 5:48 PM [facility] REPOSITORY [facility] Imaging Services [address] [place] [address] [place] [address] Orb Sella Post Fossa Ear w/o MR#: [id number] Acct: [id number] Name: SANTIAGO OLSON Rep #: [id number] : 1980 M 37 From: Bernardo Barry MD PCP: Manish Colon MD Status: REG CLI Study: Orb Sella Post Fossa Ear w/o Date of Exam: 03/28/18 Exam# [id number] Ordering Dr: Nahid Macias MD STUDY: CT [...] CC: Nahid Macias MD; Manish Colon MD Diorama Model Maker: Signed OPERATIVE REPORT Observed: 01/30/2018 Status: F Source: [place] 11:07 AM [facility] REPOSITORY [facility] Medical Records Department [address] [place] [address] Operative Report 01/30/18 1102 MR#: [id number] Acct: [id number] Name: SANTIAGO OLSON Rep #: [id number] : 1980 37 From: Giorgi Nolasco MD PCP: Manish Colon MD Status: REG [facility] Y Location: [place] [address] Problem List (1) Family history of colon [...] was a slight erythema of the mucosa. [place] likely to be secondary to the bowel [...] Status: F Source: [place] SITE) 10:30 AM [facility] REPOSITORY Patient: SANTIAGO OLSON : 1980 (37/M) Acct Num: [id number] Phys: Constance DAIGLE,Giorgi Unit Num: [id number] Loc: EN Specimen: [id number] Received: 01/30/18 - 1353 Spec Type: COLON [...] one cassette. / AM:azeb 01/30/18 TC:5 CPT: 74224 x2 HEADER OPERATION: Colonoscopy PRE-OP DIAGNOSIS: Rectal [...] on file> Performed By: #### PCOLBX #### [facility] [place], [address] SURGERY VISIT REPORT Observed: 01/25/2018 Status: F Source: [place] 8:07 AM [facility] [address] [place] [address] OFFICE VISIT Date of Service: 01/25/18 MR#: [id number] Acct: [id number] Name: SANTIAGO OLSON Rep #: [id number] : 1980 Provider: Giorgi Nolasco MD Age/Sex: 37/M Location: [facility] Status: Signed Intake Vital Signs01/25/18 Height 5 ft 7 in 01/25/18 Weight: 200 lb 2 oz 01/25/18 Body Mass Index (BMI) 31.3 01/25/18 Blood Pressure 138/89 Intake Visit Reasons: C-Scope Screening AND Hemorrhoids Chief Complaint: family history of colon cancer, rectal bleeding Floor Worker Required: No Is patient in pain?: No [...] weakness Exam Const General: cooperative, healthy appearing HENUT Head: normal to inspection Eyes General: appearance [...] F Source: [place] PROFILE (BMP) 8:03 AM [facility] REPOSITORY TYPE CODE TESTS RESULT OUT OF [...] 10 Performed By: #### L500.2500, L500.4100 #### [facility] [address] [place], [address] LIPID PROFILE Collected: 12/05/2017 Status: F Source: [place] 8:03 AM [facility] REPOSITORY TYPE CODE TESTS RESULT OUT OF [...] 49 Performed By: #### L500.2500, L500.4100 #### [facility] [address] [place], [address] ALLERGIES ALLERGIES DATE TYPE / CODE NAME / CODE REACTION SEVERITY SOURCE 05/14/2018 Drug No Known Unknown [facility] Allergy/4160 Allergies/F00 [facility] [address](SNOMED 6862373(RXNOR Repository CT) M) ENCOUNTERS ENCOUNTERS ADMIT/DISCHARGE ACCOUNT ADMITTING ENCOUNTER LOCATION SOURCE NUMBER CLASS 06/22/2018 [id number] Ambulatory [place] 2 [facility] Hospital ing:MFPLAB Repository 06/11/2018/ [id number] Ambulatory BMSBuilding:B [place] 9 4 [facility] Repository 05/21/2018/ [id number] Ambulatory BMSBuilding:B [place] 8 6 MS.CF.[facility] Repository 05/21/2018/ [id number] Amb[place] 8 9 [facility] ing:SDCRoom: Repository AC07 05/17/2018 [id number] Ambulatory BMSBuilding:W [place] 2 [facility] Repository 05/14/2018/ [id number] Ambulatory BMSBuilding:B [place] 8 6 [facility] Repository 05/02/2018/ [id number] Ambulatory [place] 8 0 [facility] ing:SDCRoom: Repository AC19 03/28/2018 [id number] Ambulatory [place] 6 [facility] ing:CT Repository 01/30/2018/ [id number] [place] 8 3 [facility] ing:ENRoom: Repository AC10 01/30/2018 [id number] Ambulatory BMSBuilding:B [place] 6 [facility].CF.[facility] Repository 01/25/2018/ [id number] Ambulatory BMSBuilding:B [place] 8 8 [facility] Repository 12/05/2017 [id number] Ambulatory [place] 7 [facility] ing:MTLAB Repository PAYERS PAYERS ENCOUNTER GUARANTOR PAYER SUBSCRIBER SOURCE 06/22/2018 GENE D Primary Insurance:[facility] DHEERAJ Owens [id number] [facility] 4592[place]68[place] Number: Repository [address]Blw: 330 [id number] [phone] () Date:5975-57-63ZB [facility] [address], [place] [address]QU: CHECK WEBSITE 06/22/2018 Secondary NOT GIVENUNK [place] Insurance:SELF PAY [facility] Number: Effective Repository Date:2018-06-22 06/11/2018 GENE D Primary Insurance:[facility] DHEERAJ Owens [id number] [facility] [id number], [place] Number: Repository [address]Wew: 330 [id number] [phone] () Date:4432-08-16LY [address]FUZMBNVSA, [place] [address]EJ: CHECK WEBSITE 06/11/2018 Secondary NOT GIVENUNK [place] Insurance:SELF PAY [facility] Number: Effective Repository Date:2018-06-09 05/21/2018 GENE D Primary Insurance:[facility] DHEERAJ PUENTES3512 [facility]: [facility] [id number], [place] Number: Repository [address]Dkl: 330 [id number] [phone] (HP) Date:5099-03-11MP [address] [address]WIV[place], [place] [address]BW: CHECK WEBSITE 05/21/2018 Secondary NOT GIVENUNK [place] Insurance:SELF PAY [facility] Number: Effective Repository Date:2018-05-21 05/21/2018 GENE D Primary Insurance:[facility] DHEERAJ BEYERCHINS3512 [facility]: [facility] [id number], [place] Number: Repository [address]Tnt: 330 [id number] [phone] (HP) Date:7480-82-30YU [address] [address]NBFFSNBLN, [place] [address]UA: CHECK WEBSITE 05/21/2018 Secondary NOT GIVENUNK [place] Insurance:SELF PAY [facility] Number: Effective Repository Date:2018-04-02 05/17/2018 GENE D Primary Insurance:[facility] DHEERAJ BEYERCHINS3512 [facility] BARNERDOB: [facility] [id number], [place] Number: Repository [address]Xdk: 330 [id number] [phone] (HP) Date:3919-87-93CW [address] [address]GZFBHZASD, [place] [address]ZJ: CHECK WEBSITE 05/17/2018 Secondary NOT GIVENUNK [place] Insurance:SELF PAY [facility] Number: Effective Repository Date:2018-05-17 05/14/2018 GENE D Primary Insurance:[facility] DHEERAJ BARNERDOB: [place] [id number] [facility] [id number] Draft, [place] Number: Repository [address]Qae: 330 [id number] [phone] (HP) Date:9622-26-44KH [address] [address]VCLQUVCFL, [place] [address]GH: CHECK WEBSITE 05/14/2018 Secondary NOT GIVENUNK [place] Insurance:SELF PAY [facility] Number: Effective Repository Date:2018-05-11 05/02/2018 GENE D Primary Insurance:[facility] DHEERAJCRISS WRENNERDOB: [place] [id number] [facility] [id number] Draft, [place] Number: Repository [address]Ntf: 330 [id number] [phone] (HP) Date:5672-66-35YE [address] [address]KCWXXWOPN, [place] [address]FE: CHECK WEBSITE 05/02/2018 Secondary NOT GIVENUNK [place] Insurance:SELF PAY [facility] Number: Effective Repository Date:2018-04-25 03/28/2018 GENE D Primary Insurance:[facility] DHEERAJ WEBBERDOB: [place] [id number] [facility] [id number] Draft, [place] Number: Repository [address]Fju: 330 [id number] [phone] (HP) Date:2097-91-14RM [address] [address]WTHDWTQRB, [place] [address]YU: CHECK WEBSITE 03/28/2018 Secondary NOT GIVENUNK [place] Insurance:SELF PAY [facility] Number: Effective Repository Date:2018-03-21 01/30/2018 GENE D Primary Insurance:[facility] DHEERAJ WEBBERDOB: [place] [id number] [facility] [id number] Draft, [place] Number: Repository [address]Lnj: 330 [id number] [phone] (HP) Date:7856-31-03KH [address] [address]EJJQHSRFE, [place] [address]JQ: CHECK WEBSITE 01/30/2018 Secondary NOT GIVENUNK [place] Insurance:SELF PAY [facility] Number: Effective Repository Date:2018-01-25 01/30/2018 GENE D Primary Insurance:[facility] DHEERAJ DUNN: [place] PUENTES[address]12 [facility] [id number] Draft, [place] Number: Repository [id number]: 330 [id number] [phone] (HP) Date:8582-66-72NR [address] [address]IDDIPQEMF, [place] [address]PD: CHECK WEBSITE 01/30/2018 Secondary NOT GIVENUNK [place] Insurance:SELF PAY [facility] Number: Effective Repository Date:2018-01-30 01/25/2018 GENE D Primary Insurance:[facility] DHEERAJ DANIELB: [place] PUENTES3512 [facility] [id number] Draft, [place] Number: Repository [address]Znk: 330 [id number] [phone] (HP) Date:7318-33-21BQ [address] [address]WDNXXXVZF, [place] [address]UJ: CHECK WEBSITE 01/25/2018 Secondary NOT GIVENUNK [place] Insurance:SELF PAY [facility] Number: Effective Repository Date:2018-01-25 12/05/2017 Gene D Primary Insurance:[facility] DHEERAJ DUNN: [place] [id number] [facility] [id number] [place], [place] Number: Repository [address]Flg: 330 [id number] [phone] (HP) Date:3693-89-40EW [address] [address]DSFHELIOF, [place] [address]AF: CHECK WEBSITE 12/05/2017 Secondary NOT GIVENUNK [place] Insurance:SELF PAY [facility] Number: Effective Repository Date:2017-12-05
== END ==
PROVIDERS: Family Provider Family Medicine; PCP Family Medicine; Visit Provider Family Medicine
DX: Z00.00 Encounter for general adult medical examination without abnormal findings (principal)
CPT/HCPCS: 36415; 80048; 80061

== ENCOUNTER 2018-10-12 09:01 | Day surgery (SDC) | payer OTHER, SELFPAY ==
[2018-05-21 08:44] VITALS: BMI 31.4
[2018-10-12 09:31] VITALS: BP 123/78; PULSE 73; RESP 16; TEMP 36.9; O2SAT 97; BMI 31.6
[2018-10-12 09:31] LABS: Hematocrit 45.6 % (40-54); Hemoglobin 15.9 g/dl (13.0-16.5); Mean Corp Hgb Conc 34.9 g/gl (32-36); Mean Corpuscular Volume 94.6 fL (80-94); Mean Platelet Vol. 10.3 fl (6.2-12.0); Platelet Count 220 K/mm3 (150-450); RBC Distribution Width CV 13.5 % (11.6-14.6); RBC Distribution Width SD 46.6 fl (35.1-43.9); Red Blood Count 4.82 M/mm3 (4.6-6.2); White Blood Count 7.6 K/mm3 (4.4-11.0)
[2018-10-12 09:34] LABS: Scan Indicated on CBC? Y/N NO
[2018-10-12] MEDS: Bacitracin 500 UNITS/GM PACKET (12:47)
[2018-10-12 13:00] VITALS: BP 123/78; BP 129/58; PULSE 82; RESP 16; TEMP 36.6; O2SAT 94
--- NOTE | 2018-10-12 13:03 | OP.PCM_ITS ---
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 There is significant ongoing inflammatory disease and acicular reconstruction was not undertaken at that time. He subsequently returns for evaluation with excellent healing but a large residual conductive hearing loss and return for second look procedure for cholesteatoma and reconstruction of his ossicular chain was advised. The risks, alternatives, potential complications, and benefits were discussed at length and any questions answered to the patient and/or caregiver's satisfaction. Witnessed informed consent was obtained in the office, and the patient and/or caregiver was agreeable to proceed. Procedure went as follows: The patient was identified in the preoperative holding brought to the operating room and was placed under general anesthesia and intubated. The operative ear had been site marked preoperatively in accordance with the office notes patient exam and history. The patient was then placed under general anesthesia and the left ear prepped and draped in usual sterile fashion. The facial nerve monitoring electrodes were then placed in the confirmed to be operational in accordance with the manufactures directions. The planned postauricular incision site for fascial graft harvest was then injected with 1% lidocaine with 100,000 epinephrine for a total of 3 mL. Through a #6 otic speculum the operative microscope was brought into the field and the external auditory canal and tympanic membrane visualized. The medial aspect of the mastoid cavity posterior to the facial nerve was then injected with 1% lidocaine with 100,000 epinephrine for a total of 0.5 cc. Using a sickle knife the medial aspect of the mastoid cavity was then incised. The incision was then developed developed anteriorly along the medial aspect of the middle ear cleft a nd over the facial nerve and facial recess. There is extensive scarring of the middle ear cleft and this was then sharply divided revealing the stapes footplate and a portion of the superstructure. There was no cholesteatoma and the adhesions within the middle ear cleft are then sharply ligated. Stimulation of the facial nerve confirmed dislocation prior to extending dissection over this area for its preservation. Epinephrine soaked cotton balls and placed for hemostasis and attention turned to the fascial graft harvest. A 1 cm incision was then created a 15 blade scalpel in the medial aspect of the tragus through the underlying cartilage at the previous injection site. The cartilage was then harvested with an iris scissor and set aside on a Salvador block for use over the ossicular chain reconstruction prosthesis. The wound was then closed with interrupted 5-0 Monocryl sutures. This completed the graft harvest portion of the procedure. Attention was then turned to reconstruction of the ossicular chain. The operative microscope was replaced and through an otic speculum and a Rom bariatric partial ossicular chain reconstruction prosthesis 2.25 mm in length was then placed overlying the stapes superstructure. The previously harvested cartilage was then reduced in thickness and placed overlying the titanium prosthesis. A single piece of Gelfoam packing was then placed to secure the prosthesis and the tympanic membrane redraped restoring the middle ear cleft. Additional Gelfoam material applied laterally to hold the composite tissue graft in place. Bacitracin ointment was then applied to secure the material and the patient then cleaned of prep solution and the facial nerve monitoring electrodes removed. The patient was then returned to anesthesia, revived and extubated without complication having tolerated the procedure well. Type of Anesthesia:: General Anesthesiologist: Nahid Lees Special Medications: none Specimen's removed: none Drains: none Estimated Blood Loss (mL): 5 mL Fluids Replaced: 1600 mL Grafts/Implants Used: Rom Variac PORP prosthesis - Admit VTE Documentation VTE Present on Admission: No VTE Mechan Device Prophylaxis: SCD's VTE Pharm Prophylaxis ordered?: No
--- NOTE | 2018-10-12 13:06 | DCINST_ITS ---
You will use the following diet at home:: Regular Discharge Activity: Return to Normal Activity Call your doctor if your incision/area has: Continuous Slow Oozing, Sudden Increased Bleeding Call your doctor if you observe: Fever of 101 or Higher, Uncontrolled pain Cleanse incision/area with: Keep Dressing Clean & Dry Allergies/Adverse Reactions: Allergies No Known Allergies Allergy (Verified 07/10/18 08:56) Medications to take at Discharge NK 10/05/18 Primary Care Physician: Manish Colon MD [Primary Care Provider] - Test Results: Test results from this visit will be discussed in further detail at your follow- up appointment, if applicable. Please Follow Up With: Nahid Macias MD When: 2 weeks
[2018-10-12 13:15] VITALS: BP 101/55; BP 123/78; PULSE 62; RESP 16; O2SAT 92
[2018-10-12 13:30] VITALS: BP 107/62; BP 123/78; PULSE 58; RESP 16; O2SAT 92
[2018-10-12 13:36] VITALS: BP 105/63; BP 123/78; PULSE 72; RESP 16; TEMP 36.1; O2SAT 98
[2018-10-12 14:40] VITALS: BP 123/78
== END 2018-10-12 14:40 | disposition home or self-care (01) ==
LOC: SDC 09:02 → AC 09:02
PROVIDERS: Family Provider Family Medicine; PCP Family Medicine; Referring Provider Otolaryngology; Visit Provider Otolaryngology
PROC: (CPT 69641; principal; 2018-10-12 09:55)
DX: H71.02 Cholesteatoma of attic, left ear (principal); H90.12 Conductive hearing loss, unilateral, left ear, with unrestricted hearing on the contralateral side; H69.92 Unspecified Eustachian tube disorder, left ear; F17.200 Nicotine dependence, unspecified, uncomplicated
CPT/HCPCS: 00120; 69633; 36415; 85027; J7120; J2405

== ENCOUNTER → 2018-12-19 10:17 | Outpatient (CLI) | payer OTHER, SELFPAY ==
[2018-12-19 10:16] VITALS: BMI 29.3
--- NOTE | 2018-12-19 10:20 | RAD_ITS ---
STUDY: X-RAY - RIGHT HAND REASON FOR EXAM: Male, 38 years old. Pain following injury. TECHNIQUE: 3 view(s) of the hand. COMPARISON: None. FINDINGS: Normal radiocarpal articulation. Normal distal radioulnar joint. Normal visualized carpal bones. Normal carpal articulations Normal carpometacarpal articulation of the thumb. Normal second through fifth carpometacarpal joints. Nondisplaced transverse fracture through the midportion of the fifth metacarpal with dorsal angulation in keeping with a boxer type fracture. Normal metacarpophalangeal joint of the thumb. Normal interphalangeal joint of the thumb. Normal proximal and distal phalanges of the thumb. Normal metacarpophalangeal joints of the second through fifth fingers. Normal proximal and distal interphalangeal joints of the second through fifth fingers. Normal phalanges of the second through fifth fingers. Soft tissue swelling. RAD/Hand Min 3 Views IMPRESSION: Boxer type fracture through the midshaft of the fifth metacarpal with dorsal angulation and soft tissue swelling. Electronically Signed: Regis Aguilar, at 11:19 EDT , Service support ,
== END ==
PROVIDERS: Family Provider Family Medicine; PCP Family Medicine; Referring Provider Physician Assistant; Visit Provider Physician Assistant
DX: S62.356A Nondisplaced fracture of shaft of fifth metacarpal bone, right hand, initial encounter for closed fracture (principal); X58.XXXA Exposure to other specified factors, initial encounter
CPT/HCPCS: 73130

== ENCOUNTER 2018-12-26 09:11 | Day surgery (SDC) | payer OTHER, SELFPAY ==
[2018-12-20 12:38] VITALS: BMI 29.3
--- NOTE | 2018-12-20 12:38 | HP_ITS ---
I have re-examined the patient. There are no clinical changes since date of exam. Intake Vital Signs 12/20/18 Body Mass Index (BMI) 29.3 12/19/18 Body Mass Index (BMI) 29.3 Intake Visit Reasons: Right Hand Chief Complaint: Right hand injury Is patient in pain?: Yes Allergies No Known Allergies Allergy (Verified 12/19/18 10:17) [facility] Medical History (Updated 12/19/18 @ 14:46 by RIVERA Love) Hemorrhoids (Acute) Family history of colon cancer in mother (Acute) Change in bowel habit (Acute) Rectal bleeding (Acute) Tobacco abuse (Acute) Family history of colon cancer (Acute) Hemorrhoids (Acute) History of ear pain (Acute) History of stroke (Acute) Surgical History (Updated 12/19/18 @ 10:18 by Griselda Ramon) History of ankle surgery (Acute) History of hand surgery (Acute) History of hemorrhoidectomy (Acute) Family History (Updated 01/25/18 @ 07:50 by Lora Salmeron) Mother Colon cancer Uncle Colon cancer Aunt Colon cancer Social History (Updated 12/20/18 @ 15:16 by RIVERA Mccartney) Smoking Status: Current every day smoker alcohol intake: current HPI Right Hand: Surgical H&P: Yes Details: Parts of this documentation were recorded by a scribe, this documentation accurately reflects the service provided and the decisions made by me, RIVERA Mccartney 12/20/18 0486. SANTIAGO OLSON is a 38 year old M here today [facility] for a fractured right 5th metacarpal. He states that he punched a wall and had immediate pain, went the [facility] yesterday and was splinted in full extension from fingers to just distal to the elbow. He has removed the splint to drive his standard car but reapplied. He states he was told he could remove the splint any time he needed. Denies numbness, tingling or other associated symptoms. He has moderate swelling of the entire hand. ROS Const Reports as per HPI Eyes Reports as per HPI ENT Reports as per HPI Card Reports as per HPI Resp Reports as per HPI GI Reports as per HPI Reports as per HPI Musc Reports as per HPI, Reports joint pain, Reports joint swelling, Reports stiffness Skin/Breast Reports as per HPI Neuro Yes as per HPI Psych Reports as per HPI Endo Reports as per HPI Piter/Lymph Reports as per HPI Aller/Immun Reports as per HPI Ortho Exam Right Wrist/Hand Skin/Wound: Yes Swelling, No Ecchymosis Contralateral Normal: Yes Right Wrist: Yes ROM-Extension 0-60, ROM-Flexion 0-80 and TTP Fracture site; no Snuffbox tenderness Motor: EPL: 5, APB: 5 Sensation: Radial: I, Ulnar: I, Median: I WRIST: Patient has evident localized swelling on the dorsal surface of the hand or localized to the fifth metacarpal. Patient does have evident tenderness on palpation at the fracture site here. Patient does have decreased motion of the fingers due to stiffness/pain. Left Wrist/Hand Skin/Wound: Yes Swelling, No Ecchymosis Assessment & Plan Problems 1. Other fracture of fifth metacarpal bone, right hand, initial encounter for closed fracture S62.396A Plan Patient presents to the office today with right hand pain following an injury where he punched a wall. Patient visited the [facility] clinic yesterday where x-rays were taken. These x-rays were reviewed with patient in office today showing a displaced volar angulated midshaft metacarpal fracture. Discussed that this is not exactly a boxer's fracture due to the location of the metacarpal. With the amount of displacement and angulation this is a pretty unstable fracture. At this time we discussed treatment options which include trying a closed reduction and immobilization versus ORIF of the metacarpal. Patient states that he had a previous fracture of the other hand requiring ORIF and would like to proceed with surgical intervention at this time. Risks and benefits of the surgery were explained to patient who verbally understands these. Consent was signed in office today. Patient was given antibacterial cleansed to be used the night before and morning of. Patient will be contacted by anesthesia for preanesthesia testing. He will know the time of his surgery the day prior to his surgery. Patient has no other questions at this time. Dr. Almanza did also evaluate patient to explain surgery as well. Patient has no notify the office with any concerns or complaints in the meantime. Continue to ice, elevate and take anti-inflammatories. Patient was also put in a different ulnar gutter splint. This note was generated with 4meeeation software. It may contain incorrect words, spelling, and punctuation that were not noted in checking the note before signing. Coding Level of Care Code Off vis,new,level 3 Diagnoses Other fracture of fifth metacarpal bone, right hand, initial encounter for closed fracture S62.396A 12/20/18 7056 <Electronically signed by Harris STAFFORD> Date _ Harris STAFFORD
[2018-12-26 09:44] VITALS: BP 116/71; PULSE 63; RESP 14; TEMP 36.9; O2SAT 94; BMI 31.6
--- NOTE | 2018-12-26 10:10 | RAD_ITS ---
STUDY: X-RAY - RIGHT HAND REASON FOR EXAM: ORIF fifth metacarpal. TECHNIQUE: 2 intraoperative images of the hand. COMPARISON: Radiographs 12/19/2018. FINDINGS: There is an orthopedic plate and screws transfixing a fifth metacarpal diaphyseal fracture in anatomic alignment and position. Electronically Signed: Dane Newsome MD at 13:48 EDT Tel , Service support , RAD/Hand Min 3 Views
[2018-12-26] MEDS: Cefazolin 2 GM in 0.9% Normal Saline 100 ML IV (10:22)
[2018-12-26] MEDS: Mupirocin Ointment 22gm Tube 1 APPLIC (11:30)
[2018-12-26] MEDS: Bupivacaine Mpf 0.5% 30 ML VIAL (11:40)
--- NOTE | 2018-12-26 11:40 | PCM.DC.ORTHO ---
Discharge Diet: No Restrictions - leave dressing intact, follow up in 2 weeks, call with concerns Discharge Activity: May Not Drive May shower in (days): 1 Ice area for (Minutes): 20 - Every hour while awake. Weight Bearing Status: Weight bearing as tolerated Keep extremity elevated above heart level: Operative Extremity Call your doctor if your incision/area has: Continuous Slow Oozing, Sudden Increased Bleeding, Increased Pain/ Swelling, Increased Redness, Foul Smelling Discharge Call your doctor if you observe: Fever of 101 or Higher, Coldness, Increased Pain, Numbness or Tingling, Change in Color, Calf discomfort Allergies/Adverse Reactions: Allergies No Known Allergies Allergy (Verified 12/25/18 08:06) Medications to take at Discharge Hydrocodone Bitart/Apap 5-325 [[place] 5MG-325MG] 1 - 2 tablet PO Q6H PRN PRN 5 Days #40 tablet 12/26/18 The following prescriptions were given: Hydrocodone Bitart/Apap 5-325 [[place] 5MG-325MG] 1 - 2 tablet PO Q6H PRN PRN 5 Days #40 tablet PRN Reason: Pain Transmission Status: Sent to [facility] Primary Care Physician: Manish Colon MD [Primary Care Provider] - Test Results: Test results from this visit will be discussed in further detail at your follow-up appointment, if applicable. Please Follow Up With: Montserrat Duran, - [phone]
--- NOTE | 2018-12-26 11:40 | PCM.OPRPT ---
Report of Operation Date of Procedure: 12/26/18 Pre-Operative Diagnosis: right fifth metacarpal displaced fracture Post-Operative Diagnosis: same Surgery/Procedure Performed:: orif right fifth metacarpal research assistant professor: Ranjit Reynolds Type of Anesthesia:: General Anesthesiologist: Nahid Lees Estimated Blood Loss (mL): minimal Fluids Replaced: 700cc lr Description of Procedure: Preop note Patient is a 1-year-old male who punched a wall sustaining a transverse fracture of his midshaft of his right fifth metacarpal. ~Closed reduction unsuccessful. Patient discussed risk benefits alternatives surgery. Risks include but not limited to blood loss, blood clot, infection, neurovascular, failure procedure, loss of life and loss of limb. Patient rarely proceed with right fifth metacarpal ORIF. Operative note Next Patient seen and examined preop holding area. Right knee was marked. Patient brought to the operating placed supine on the operating table. Sign, anesthesia, antibiotics were administered the right arm was prepped and draped usual sterile fashion with tourniquet around his upper arm all bony prominence felt well-padded SCDs placed on his bilateral lower semi-. We then used x-ray to ascertain the level of our incision. Right arm was elevated single knee and triggers rates her pressure 250 torr. A timeout was performed. We then use a 15 blade to cut through the skin and concern that we made the incision between the fifth and fourth metacarpals. We dissected down tenotomies protecting all neurovascular structures as we did so down the level of the fracture site we then debrided the fracture site releasing the periosteum off the fracture site in order plate for an plate to 60 fixation. We then used fluoroscopy to ascertain the position of the plate and how many holding plate we need. We placed a 6-hole 2.0 plate on top of the fracture site drilled on the far cortices and loosen the screw and then placed a acentrically placed screw in order to further reduce the fracture for cortical contact. We good reduction of her fractures at that time. We then filled and the remaining holes of the plate drilling and measuring up appropriately using 206 screws from the a.m. Synthes modular hand set. We then irrigated the incision with copious muscle sterile saline. We closed the fascia over top of the plate. The skin was closed with 4-0 Vicryl in a running 4-0 Monocryl. Sterile dressings were applied and an ulnar gutter splint was applied to the right hand. Tourniquet was deflated for a total working time of 5 minutes. Patient tolerated procedure well no comp occasions [facility] recovery room in stable condition. Postoperative Next Nonweightbearing right hand Follow-up in 2 weeks Call with increased pain numbness tingling or further issues arises Pain medications at Hospital pharmacy This note was generated with RaySat dictation software. It may contain incorrect words, spelling, and punctuation that were not noted in checking the note before signing. Grafts/Implants Used: synthes 2.0 modular hand
[2018-12-26 12:00] VITALS: BP 116/71; BP 122/87; PULSE 80; RESP 20; TEMP 36.6; O2SAT 94
[2018-12-26 12:15] VITALS: BP 116/71; BP 144/91; PULSE 68; RESP 16; O2SAT 96
[2018-12-26 12:34] VITALS: BP 116/71; BP 132/89; PULSE 97; RESP 14; TEMP 36.2; O2SAT 96
[2018-12-26 13:38] VITALS: BP 116/71; BP 136/75; PULSE 75; RESP 18; TEMP 36.6; O2SAT 96
== END 2018-12-26 13:45 | disposition home or self-care (01) ==
LOC: SDC 09:11 → AC 09:12
PROVIDERS: Family Provider Family Medicine; PCP Family Medicine; Referring Provider Orthopaedic Surgery; Visit Provider Orthopaedic Surgery
PROC: (CPT 26615; principal; 2018-12-26 11:15)
DX: S62.326A Displaced fracture of shaft of fifth metacarpal bone, right hand, initial encounter for closed fracture (principal); W22.8XXA Striking against or struck by other objects, initial encounter; Y93.89 Activity, other specified; Y92.9 Unspecified place or not applicable; F17.200 Nicotine dependence, unspecified, uncomplicated
CPT/HCPCS: 01830; 26615; 73130; 76000; C1713; J7120; J2405

== ENCOUNTER → 2019-01-08 12:13 | Outpatient (CLI) | payer OTHER, SELFPAY ==
[2019-01-08 12:03] VITALS: BMI 31.6
--- NOTE | 2019-01-08 12:14 | RAD_ITS ---
STUDY: X-RAY - RIGHT HAND REASON FOR EXAM: Follow-up fifth metacarpal fracture. TECHNIQUE: 3 view(s) of the hand. COMPARISON: Intraoperative images 12/26/2018. FINDINGS: Normal radiocarpal articulation. Normal distal radioulnar joint. Normal visualized carpal bones. Normal carpal articulations Normal carpometacarpal articulation of the thumb. Normal second through fifth carpometacarpal joints. There is an intact orthopedic plate and screws transfixing a fifth metacarpal diaphyseal fracture in anatomic alignment and position. Normal metacarpophalangeal joint of the thumb. Normal interphalangeal joint of the thumb. Normal proximal and distal phalanges of the thumb. Normal metacarpophalangeal joints of the second through fifth fingers. Normal proximal and distal interphalangeal joints of the second through fifth fingers. Normal phalanges of the second through fifth fingers. The soft tissue structures are unremarkable. RAD/Hand Min 3 Views IMPRESSION: ORIF of fifth metacarpal fracture in anatomical alignment and position. Electronically Signed: aDne Newsome MD at 13:02 EDT Tel , Service support ,
== END ==
PROVIDERS: Family Provider Family Medicine; PCP Family Medicine; Referring Provider Orthopaedic Surgery; Visit Provider Orthopaedic Surgery
DX: S62.396A Other fracture of fifth metacarpal bone, right hand, initial encounter for closed fracture (principal); S62.339A Displaced fracture of neck of unspecified metacarpal bone, initial encounter for closed fracture; Z98.890 Other specified postprocedural states
CPT/HCPCS: 73130

== ENCOUNTER 2019-01-09 08:52 | Outpatient (RCR) | payer OTHER, SELFPAY ==
[2019-01-08 12:03] VITALS: BMI 31.6
--- NOTE | 2019-01-09 09:50 | HP.OTEVAL_ITS ---
Patient's Visit Information SANTIAGO OLSON is a 38 year old M, referred to Occupational Therapy by Montserrat Duran DO, with a diagnosis of right 5th Metacarpal fx s/p ORIF. Date of Evaluation: 01/09/19 Occupational Therapist: Elina La, NEHAL/Rashida, CHT - Subjective Subjective: This 38 year old male was seen for OT eval with dx of right 5th Metacarpal fx with ORIF on 12/26/18. PT arrives today for custom orthosis protection and support. pt demo full composite fist. Pt reports he is IND. with all ADLS and IADLs at this time. - ROM ROM Comments: pt demo with full ext and flex of right hand and LF at this time. - Strength Client Service Coordinator: right NT left 85# Lateral Pinch: right NT left 18# Tripod Pinch: right NT left 18# Strength Comments: Not tested due to healing fx. - Quick DASH-Disab of Arm,Shoulder& Hand Quick DASH Score: 11.6650 - Goals Goal:: Pt will demo ind. Donning/doffing of custom orthosis by end of 1st session. Pt will demonstrate understanding of orthosis use and precautions by end of 1st session and demonstrate knowledge of returning to clinic if orthosis needs adj. to increase comfort by end of 1st session. - Rehabilitation General Assessment: PT demo with healing right 5th Metacarpal 2 weeks s/p ORIF and in need of skilled OT services to brad. custom orthosis and ed. on on use and care. PT demo functional fist WNL and equal to unaffected hand. Today therapist brad. custom handbased orthosis, ed. pt on use, care and precautions. At end of session pt was donning/doffing orthosis ind. and demo understanding of orthosis use and precautions. pt to return if orthosis needs adj. Rehabilitation Potential: Good - Anticipated Interventions Anticipated Interventions: A/AAROM/PROM, Orthoses, Home Program - Visit Plan TEXT: Thank you for the opportunity to evaluate your patient. For Medicare and Medicare HMO plans, please review the plan of care and approve it. It will need to be FAXED BACK to us at [phone] for Medicare purposes. Please let me know if there are questions or concerns regarding this plan of care. Physician Signature: Date:
--- NOTE | 2019-04-24 19:06 | HP.OT.NRP ---
HP - Discharge Summary - Patient Information SANTIAGO OLSON was seen in my office for initial evaluation on 01/09/19. The following Plan of Care was established for this patient: - Anticipated Interventions Anticipated Interventions: A/AAROM/PROM, Orthoses, Home Program This patient was last seen in our office 01/09/19. Pertinent comments regarding their Occupational therapy will appear below: Pt seen for eval only- pt did not schedule further OT apt. Due to time lapse in care pt d/c at this time. At this point I will be discontinuing this patient from occupational therapy. I would be happy to see this patient again in the future if found appropriate by the physician. Thank you! Elina La, OTR/L, CHT
== END 2019-01-09 19:00 | disposition home or self-care (01) ==
LOC: OT 08:52
PROVIDERS: Family Provider Family Medicine; PCP Family Medicine; Referring Provider Orthopaedic Surgery; Visit Provider Orthopaedic Surgery
DX: Z98.890 Other specified postprocedural states (principal)
CPT/HCPCS: 97166; 97760

== ENCOUNTER → 2019-02-07 08:08 | Outpatient (CLI) | payer OTHER, SELFPAY ==
[2019-02-07 08:00] VITALS: BMI 31.6
--- NOTE | 2019-02-07 08:10 | RAD_ITS ---
STUDY: X-RAY - RIGHT HAND REASON FOR EXAM: Male, 38 years old. Injury and pain TECHNIQUE: 3 view(s) of the hand. COMPARISON: 01/08/2019 FINDINGS: Normal radiocarpal articulation. Normal distal radioulnar joint. Normal visualized carpal bones. Normal carpal articulations Normal carpometacarpal articulation of the thumb. Normal second through fifth carpometacarpal joints. Surgical fusion of the fifth metacarpal. Fracture of the fifth metacarpal with signs of healing. Normal fracture alignment. Normal metacarpophalangeal joint of the thumb. Normal interphalangeal joint of the thumb. Normal proximal and distal phalanges of the thumb. Normal metacarpophalangeal joints of the second through fifth fingers. Normal proximal and distal interphalangeal joints of the second through fifth fingers. Normal phalanges of the second through fifth fingers. The soft tissue structures are unremarkable. RAD/Hand Min 3 Views IMPRESSION: Surgical fusion of the fifth metacarpal. Fracture of the fifth metacarpal with signs of healing. Normal fracture alignment. Electronically Signed: Johnathan Tracy MD at 17:00 EDT Tel , Service support ,
== END ==
PROVIDERS: Family Provider Family Medicine; PCP Family Medicine; Referring Provider Physician Assistant; Visit Provider Physician Assistant
DX: S62.396A Other fracture of fifth metacarpal bone, right hand, initial encounter for closed fracture (principal); Z47.89 Encounter for other orthopedic aftercare
CPT/HCPCS: 73130

== ENCOUNTER 2019-03-29 07:11 | Day surgery (SDC) | payer OTHER, SELFPAY ==
[2019-02-07 08:00] VITALS: BMI 31.6
[2019-03-29 07:36] VITALS: BP 120/78; PULSE 73; RESP 15; TEMP 36.7; O2SAT 97; BMI 32.3
[2019-03-29] MEDS: Oxymetazoline 0.05% 1 SPRAY SPRAY.BTL 15 SPRAY (09:11)
--- NOTE | 2019-03-29 09:23 | PCM.OPRPT ---
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 Initially had good hearing but due to retraction of the tympanic membrane recurrent conductive hearing loss was encountered. This is been successfully temporized with a grommet style tube placed in the office but upon extrusion his hearing loss returned. Placement of a T-tube for ongoing ventilation of the middle ear cleft was offered in hopes of more permanent resolution of his hearing loss. The risks, alternatives, potential complications, and benefits were discussed at length and any questions answered to the patient and/or caregiver's satisfaction. Witnessed informed consent was obtained in the office, and the patient and/or caregiver was agreeable to proceed. Procedure went as follows: The patient was identified in the preoperative holding and brought to the operating room, and placed under general anesthesia. When appropriate anesthesia was obtained, the operative microscope was brought into the field and beginning on the left side the external auditory canal and tympanic membrane visualized. This is noted to be deeply retracted with loss of normal landmarks and the cartilage steven in place at his ossicular chain reconstruction site. A myringotomy was then placed in the anteroinferior portion the tympanic membrane. There is noted to be significant scarring and fibrosis of the middle ear cleft. This was then opened with a gently curved pick and thick mucoid effusion aspirated from the attic where there was a residual mastoid air cell. This allowed for placement of a good ET tube with the superior limb position to ensure ongoing ventilation of the superior aspect of the middle ear space. Oxymetazoline drops were then applied for hemostasis. There is noted to be buildup of squamous debris within the mastoid cavity and then this was then widely debrided and the excess Afrin suctioned clear. There was otherwise no significant of ongoing middle ear disease or cholesteatoma involvement. The patient was then returned to anesthesia, revived and returned to recovery without complication. Type of Anesthesia:: General Anesthesiologist: Nahid Lees Special Medications: none Specimen's removed: none Drains: none Estimated Blood Loss (mL): 0 mL Fluids Replaced: 0 mL Grafts/Implants Used: Abril T-tube - Complications none - Admit VTE Documentation VTE Present on Admission: No VTE Mechan Device Prophylaxis: None VTE Pharm Prophylaxis ordered?: No Reason prophylaxis not ordered:: Procedure Not Indicated
[2019-03-29 09:29] VITALS: BP 120/78; BP 125/72; PULSE 65; RESP 16; TEMP 36.2; O2SAT 94
--- NOTE | 2019-03-29 09:31 | DCINST_ITS ---
Discharge Diet: No Restrictions Discharge Activity: Return to Normal Activity Call your doctor if your incision/area has: Sudden Increased Bleeding Call your doctor if you observe: Fever of 101 or Higher, Uncontrolled pain Allergies/Adverse Reactions: Allergies No Known Allergies Allergy (Verified 03/29/19 07:34) Medications to take at Discharge NK 03/27/19 Primary Care Physician: Manish Colon MD [Primary Care Provider] - Test Results: Test results from this visit will be discussed in further detail at your follow- up appointment, if applicable. Please Follow Up With: Nahid Macias MD When: 2 weeks
[2019-03-29 09:45] VITALS: BP 120/78; BP 122/76; PULSE 60; RESP 16; O2SAT 93
[2019-03-29 10:00] VITALS: BP 120/78; BP 127/83; PULSE 62; RESP 16; TEMP 36.4; O2SAT 94
[2019-03-29 10:25] VITALS: BP 120/78
== END 2019-03-29 10:26 | disposition home or self-care (01) ==
LOC: SDC 07:12 → AC 07:12
PROVIDERS: Family Provider Family Medicine; PCP Family Medicine; Referring Provider Otolaryngology; Visit Provider Otolaryngology
PROC: (CPT 69220; principal; 2019-03-29 08:35)
DX: H69.92 Unspecified Eustachian tube disorder, left ear (principal); H90.12 Conductive hearing loss, unilateral, left ear, with unrestricted hearing on the contralateral side; H95.02 Recurrent cholesteatoma of postmastoidectomy cavity, left ear; K21.9 Gastro-esophageal reflux disease without esophagitis; F17.200 Nicotine dependence, unspecified, uncomplicated; Z86.73 Personal history of transient ischemic attack (TIA), and cerebral infarction without residual deficits
CPT/HCPCS: 00126; 69220; 69436

== ENCOUNTER 2021-08-27 17:42 | Outpatient (CLI) | payer BC, SELFPAY | END 2021-08-27 23:59 | disposition home or self-care (01) | PROVIDERS: PCP Family Medicine; Visit Provider Family Medicine | DX: Z20.822 Contact with and (suspected) exposure to COVID-19 (principal) | CPT/HCPCS: 87635; U0003; U0005 ==

== ENCOUNTER 2022-02-21 06:47 | Day surgery (SDC) | payer BC, SELFPAY ==
[2022-02-21] VITALS (7 sets, daily range): BP systolic 127–140; BP diastolic 75–82; PULSE 58–88; RESP 16; TEMP 36.3–36.7; O2SAT 93–99; BMI 30.3
[2022-02-21] MEDS: Lactated Ringers 1,000 ML 15 ML IV ×2 (07:32→09:52)
--- NOTE | 2022-02-21 08:35 | VOCOB_PTH ---
PATIENT: SANTIAGO OLSON LOC: [facility] [place] U#:[id number] AGE/SX: 41/M ROOM: RE02/21/[address]: Dr. Jean Silva MD : 1980 BED: DIS: 02/21/2022 SPEC #: [id number] RECD: 02/21/22 10:58 STATUS: JAMIN HERNANDEZ #: [id number] MARCY: 02/21/22 08:[address]: Jean Silva DEPT: SURGICAL PATHOLOGY RECD BY: Betsy Oviedo ENTERED: 02/21/22 12:12 SP TYPE: VOCAL CORD OTHR DR: Dr. Manish Colon MD Tissues: Vocal cord, NOS Procedures: Surgery Specimen Level IV HEADER OPERATION: Micro direct laryngoscopy with excision vocal cord polyp PRE-OP DIAGNOSIS: Hoarseness, chronic laryngitis, polyp vocal TISSUE SUBMITTED: Left true vocal cord polyp MICROSCOPIC DIAGNOSIS Left true vocal cord polyp, biopsy: Benign vocal cord polyp. GUSTAVO:azeb 02/22/2022 MICROSCOPIC DESCRIPTION Slides are reviewed. GROSS DESCRIPTION Received in fixative is one container labeled with the patient's name and designated left true vocal cord polyp. The specimen consists of one irregular fragment of light herrera soft tissue that measures 0.2 x 0.2 x 0.1 cm. The specimen is totally submitted in one cassette. / GUSTAVO:azeb 02/21/2022 TC:5 CPT: 39568
--- NOTE | 2022-02-21 08:43 | PCM.DC.SUM ---
Providers Primary Care Physician: Dr. Manish Colon MD Reason For Visit: MICRO DIRECT LARYNGOSCOPY WITH EXC VOCAL CORD POLY Medications at Discharge Home Medications NK 03/27/19 Weight / BMI Weight Weight: 90.5 kg Body Mass Index (BMI) 30.3 D/C Instructions Discharge Diet: No restrictions Discharge Activity: Return to Normal Activity Additional Activity Instructions: Absolute voice rest for 3 days. Then arms length talking for the next week Please Follow Up With: Jean Silva MD When: 2 weeks Meaningful Use Info Meaningful Use Diagnoses (Choose all that apply): None applicable Discharge Plan Admission Attending Provider: Jean Silva Primary Care Provider: Manish Colon Discharge Orders/Prescriptions Prescriptions: No Action NK Referrals / Follow Up: Manish Colon MD [Primary Care Provider] - Disposition Disposition (needs filled in before D/C Order can be placed): Home, Self Care
[2022-02-21] MEDS: Epinephrine (1 mg/ml) 1 MG/ML VIAL (09:24)
--- NOTE | 2022-02-21 09:27 | PCM.OPRPT ---
Report of Operation Date of Procedure: 02/21/22 Pre-Operative Diagnosis: left vocal cord polyp Post-Operative Diagnosis: same Surgery/Procedure Performed:: MicroDirect Laryngoscopy with excision of left vocal cord polyp Description of Surgical Findings:: small polyp left anterior vocal cord Surgeon: Jean Silva Type of Anesthesia: General Anesthesiologist: Luis Alberto Wong Estimated Blood Loss (mL): minimal Description of Procedure: The patient was taken to the operating on 02/21/2022. He was placed on the operating room table in the supine position. He was given sufficient general endotracheal anesthesia. The table was turned 90 degrees in a clockwise fashion. The patient was draped sterilely. A gum guard was placed on the upper dentition. A Dedo laryngoscope inserted in the patient's mouth and then into the oropharynx. The oropharynx and epiglottis were normal. I then exposed the larynx. Once I could see the polyp I placed him in the Lewy suspension on a Hancock stand. The operating microscope was used for the remaining procedure. There was a small polyp coming from the anterior aspect of the left true vocal cord. This was just posterior to the anterior commissure. The polyp was grasped with a cup forceps. I then excised the polyp and a small amount of the surrounding mucosa while keeping the muscular layer intact beneath. The specimen was sent for permanent section. Hemostasis was achieved with topical adrenaline. Once hemostasis was achieved, all of the instrumentation was removed as well as the gum guard. The patient was turned back to the regular anesthesia position and awoken. He was brought to the recovery room in stable condition. blood loss minimal, replacement none. Sponge, needle, and instrument count were correct at the end of the procedure.
[2022-02-21] MEDS: Acetaminophen 650 MG/20 ML UDC PO (10:48)
== END 2022-02-21 11:06 | disposition home or self-care (01) ==
LOC: SDC 06:48 → AC 06:49
PROVIDERS: PCP Family Medicine; Referring Provider Otolaryngology; Visit Provider Otolaryngology
PROC: 0CJS8ZZ Inspection of Larynx, Via Natural or Artificial Opening Endoscopic (ICD-10-PCS; CPT 31575; principal; 2022-02-21 08:30)
DX: J38.1 Polyp of vocal cord and larynx (principal); J37.0 Chronic laryngitis; R49.0 Dysphonia; Z86.73 Personal history of transient ischemic attack (TIA), and cerebral infarction without residual deficits; F17.200 Nicotine dependence, unspecified, uncomplicated; K21.9 Gastro-esophageal reflux disease without esophagitis
CPT/HCPCS: 31541; 00320; 88305; J7120; J2405

== ENCOUNTER 2024-05-05 10:49 | Emergency (ER) | payer MEDICAID, SELFPAY ==
[2024-05-05 10:50] VITALS: BP 139/86; PULSE 86; RESP 19; TEMP 36.2; O2SAT 100; BMI 29.7
[2024-05-05] MEDS: Epi Pen (EQUIV) 0.3 MG Syringe IM (11:01)
[2024-05-05] MEDS: MethylPREDNISolone 125 MG/2 ML Vial IV (11:02)
[2024-05-05] MEDS: DiphenhydrAMINE 50 MG/ML Syringe IV (11:02)
--- NOTE | 2024-05-05 11:08 | ED.RN ---
PT HAD BEEN SICK SINCE LAST WEEKEND AND WENT IN TO URGENT CARE LAST MONDAY AND WAS RX Z-NAVNEET. HAS SINCE HAD REDNESS TO THE EYES AND ITCHING OF THROAT. HAVING TROUBLE SWALLOWING FOR 24 HOURS. PT'S VS ARE STABLE AND DR BARNETT MET PT AT THE BEDSIDE IMMEDIATELY AND MED ORDERS WERE ADMINISTERED.
--- NOTE | 2024-05-05 11:14 | EX.ED.DYSGE1 ---
HPI History of Present Illness Chief Complaint: Allergic Reaction Detail of Chief Complaint: Allergic reaction presumed to be due to azithromycin Informant: patient and spouse/S.O. Onset/Context/Timing Onset: Days (Onset , May 03) Context: Sudden Onset Timing: Continuous Quality: Conjunctival injection with itching, change in voice, drooling Location: HEENT and upper airway Current Severity: Moderate Maximum Severity: Moderate Worsened by: Presumed allergic reaction Relieved by: Nothing Associated Symptoms Associated Symptoms: Per HPI narrative Narrative Narrative: Patient is a 43-year-old male. He was seen at urgent care and prescribed a ophthalmic solution as well as prednisone. He was presumed to have an allergic reaction to azithromycin. He presents because of change in voice and drooling that started last evening. He is on no antihypertensive meds. The only medication he is on is the prednisone and tobramycin ophthalmic drops. His mom commented that his face looks swollen around. He has not noted a rash. He did have lesions buccal mucosa. He states those have resolved. He denies shortness of breath, wheezing or difficulty breathing. He denies dyspnea on exertion. He denies abdominal pain, nausea vomiting or diarrhea. He denies orthostatic symptoms. Review of prior records indicates he has history of ear surgery, hemorrhoids, rectal bleeding and family history of colon cancer. He states he had a biopsy performed by Dr. Jean Silva approximate 2 years ago. He states the lesion was benign. He thought it was the esophagus. Prior similar symptoms: No Recent Illness/Hospitalization: Yes [facility] Medical History Wears contact lenses Wears glasses Alcohol use Marijuana use Redness of skin Chronic cough Injury of head and neck Stroke/cerebrovascular accident Gastric reflux Smoker History of echocardiogram History of stroke History of ear pain Hemorrhoids Family history of colon cancer in mother Change in bowel habit Rectal bleeding Tobacco abuse Family history of colon cancer Hemorrhoids Home Medications ?Medication ?Instructions ?Recorded ?Last Taken ?Type prednisone 10 mg tablet 10 mg PO QDAY 12 days #30 tabs 05/03/24 Unknown Rx tobramycin 0.3 % eye drops 1 drp ophthalmic (eye) Q4H 7 days 05/03/24 Unknown Rx #5 mL doxycycline monohydrate 100 mg 100 mg PO BID #10 CAPSULES 05/05/24 Unknown Rx capsule Allergy/AdvReac Type Severity Reaction Status Date / Time azithromycin (From Zithromax Allergy Intermediate Swelling Verified 05/03/24 09:13 Z-Titi) Family History Mother Colon cancer Uncle Colon cancer Aunt Colon cancer Surgical History Hx of myringotomy History of hemorrhoidectomy History of hand surgery History of ankle surgery Social History Smoking Status: Current every day smoker tobacco type: cigars alcohol intake: current ROS ROS ED Constitutional Constitutional ED: Reports chills and fever(s); Denies subjective or sweats Eyes Eyes: Reports other Details: Redness to the conjunctive, sclera and itching with discharge. ; Denies blurry vision, change in vision or diplopia ENT ENT ED: Reports rhinorrhea, sore throat and other Details: Patient reports drooling. He does endorse change in voice. His voice is deeper than normal. ; Denies ear pain Cardiovascular Cardiovascular: Denies chest pain, orthopnea or palpitations Respiratory/Chest Respiratory/Chest: Denies cough, dyspnea, dyspnea on exertion or orthopnea Gastrointestinal Gastrointestinal: Denies abdominal pain, diarrhea, nausea or vomiting Musculoskeletal Musculoskeletal: Denies arthralgias or myalgias Integumentary Denies rash Neurologic Neurologic: Denies headache(s) or weakness Hematologic/Lymphatic Hematologic/Lymphatic: Reports systems reviewed and no addt'l complaints, except as documented Allergic/Immunologic Allergic/Immunologic ED: Reports mouth swelling and tongue swelling; Denies urticaria EXAM Physical Exam Const Vital Signs: 05/05/24 10:50 05/05/24 11:49 05/05/24 12:00 Temperature 97.1 F L Temperature Source Temporal Pulse Rate 86 69 68 Respiratory Rate 19 H 18 19 H Blood Pressure 139/86 H 140/74 H 135/78 H Blood Pressure Mean 103 96 97 Pulse Ox 100 93 93 Oxygen Delivery Method Room Air Room Air Room Air 05/05/24 13:00 05/05/24 14:00 Temperature Temperature Source Pulse Rate 70 72 Respiratory Rate 18 21 H Blood Pressure 137/81 H 138/76 H Blood Pressure Mean 99 96 Pulse Ox 96 97 Oxygen Delivery Method Room Air Room Air Positive well nourished and well developed Constitutional Narrative: Patient has a hoarse voice with drooling. He is in no obvious distress. General Appearance ED: well developed; Negative for cyanotic, diaphoretic or pallor HEENT Reports moist mucous membranes HEENT Narrative: Patient has a Mallampati score of 3. There appears to be swelling of the tongue and uvula. Exam is limited. He does have a hoarse voice. He has swelling of the gingiva and lower lip predominately left side. The gum swelling is also predominantly the left side. There are no oral mucosal lesions noted. Eyes PERRL and EOMs intact bilaterally Eyes Narrative: Conjunctive is injected as well as sclera. There is no photophobia to direct light. General Eye ED: Negative for pale conjunctiva or scleral icterus Neck no lymphadenopathy, supple and no JVD Neck Narrative: Trachea is midline. There may be Steven there is no cervical lymphadenopathy. There is no fullness or firmness to the submental region.. Chest Wall inspection of chest normal and palpation of chest normal Resp normal respiratory effort and clear to auscultation bilaterally Cardio regular rate, regular rhythm, S1 normal heart sound, S2 normal heart sound and no murmurs GI normal to inspection, nondistended, normoactive bowel sounds, non-tender, non-distended and no masses Extremity normal to inspection Extremity Narrative: There is no clubbing or cyanosis. There is no delayed capillary refill. General Extremety ED: Negative for edema or tenderness General Extremity: Negative for edema Neuro oriented x3 and CN's II-XII intact bilaterally Sensorium / Orientation: alert Skin no rashes or lesions noted, no wounds and skin turgor normal General Skin Exam: elasticity normal; Negative for jaundice or pallor MDM MDM MDM Narrative Medical decision making narrative: Patient has evidence of angioedema. He is drooling. Since concerned this is a IgE mediated allergic response patient treated with epinephrine, Solu-Medrol, Benadryl and Pepcid. If patient does not improve will obtain soft tissue of the neck versus CAT scan. Patient was reassessed at 1115. His normal swelling in my opinion is improved. His lip is less swollen. His tongue is less swollen. He now has a Mallampati score of 2. Uvula appears slightly swollen. Soft palate appear swollen as well. Trachea is midline. There is no stridor noted. There is good air movement. Lungs are clear to auscultation. Heart is regular. Rate is normal. Patient was reassessed at 1138. He reports mild improvement. In my opinion there is a change in his voice. In my opinion there is no swelling of his lips or tongue. He is not actively drooling at this time. Will reassess in 30 minutes. Patient was reassessed at 1243. There may be slight decrease in swelling of his face. He still reports significant throat anterior neck pain. He is not drooling at this time. He states it still difficult to swallow, however. In light of this we will obtain imaging. Patient was reassessed at 1315. Patient's face appears normal appearance and there is prominence of the nasal labial fold bilaterally. His lip appears normal at this time. He is now spitting up because of the pain. He was informed of my interpretation of the x-ray. Patient was reassessed at 1438. He no longer has facial swelling. There is no evidence of angioedema. He is no longer drooling. He still complains of sore throat. There is evidence of petechiae. Since this may represent infectious etiology he was placed on antibiotic. He has reported allergy to penicillin and had significant reaction azithromycin. Therefore will treat with doxycycline. Lab Data Attestation: I reviewed the patient's lab results. Lab results narrative: White count is elevated. There is no shift. There is no eosinophilia. Electrolyte panel is unremarkable. BUN is slightly up at 20 with a normal BUN to creatinine ratio. Labs: Laboratory Results - last 24 hr 05/05/24 11:12 WBC 15.9 H RBC 4.66 Hgb 15.2 Hct 44.0 MCV 94.4 H MCH 32.6 H MCHC 34.5 RDW Std Deviation 43.3 RDW Coeff of Elysia 12.4 Plt Count 324 MPV 11.0 Immature Gran % (Auto) 0.500 Neut % (Auto) 57.7 Lymph % (Auto) 30.2 Wilcox % (Auto) 10.1 H Eos % (Auto) 0.9 Baso % (Auto) 0.6 Absolute Neuts (auto) 9.2 H Absolute Lymphs (auto) 4.81 H Nucleated RBC % 0 Differential Comment SCANNED Diff Path Review May foll Sodium 138 Potassium 3.9 Chloride 106 Carbon Dioxide 25.0 Anion Gap 7 BUN 20 H Creatinine 1.05 Estim Creat Clear Calc 96.19 Est GFR (MDRD) Af Amer 98 Est GFR (MDRD) Non-Af 81 BUN/Creatinine Ratio 19.0 Glucose 99 Calcium 9.3 Radiography Chest X-Ray - ED: 2 View and Read by ED Physician (Soft tissue neck was interpreted by me at 1303 as negative. There is evidence of proctitis, prevertebral soft tissue swelling to suggest an abscess, retropharyngeal. There is no lingular lymph nodes that are enlarged.) Diagnostic Testing: Clinical Impression(s) from Imaging Studies Soft Tissue Neck X-Ray 05/05/24 12:50 IMPRESSION: Normal soft tissue neck. Electronically Signed: Stu Lara MD at 14:20 EST , Discharge Plan Triage Chief Complaint: Allergic Reaction ED Provider: Mychal Mccabe Dx/Rx/DC Orders Clinical Impression: Allergic angioedema, Pharyngitis, Acute conjunctivitis, bilateral, Dehydration Instructions: ED General Allergic Reactions, ED Pharyngitis, Viral Prescriptions: New doxycycline monohydrate 100 mg capsule 100 mg PO BID Qty: 10 0RF No Action prednisone 10 mg tablet 10 mg PO QDAY 12 Days Qty: 30 0RF Rx Instructions: Take 4 tabs once daily days 1-3 3 tabs once daily days 4-6 2 tabs once daily days 7-9 and 1 tab once daily days 10-12. tobramycin 0.3 % drops 1 drp ophthalmic (eye) Q4H 7 Days Qty: 5 0RF Primary Care Provider: Manish Colon Referrals: Manish Colon MD [Primary Care Provider] - 3-5 Days if not improving Print Language: Belarusian Disposition Disposition: Home, Self Care
[2024-05-05] MEDS: Famotidine 200 MG/20 ML MDV 20 MG in 0.9% Normal Saline (Pres. free 8 ML 300 MG IV (11:18)
[2024-05-05 11:49] VITALS: BP 140/74; PULSE 69; RESP 18; O2SAT 93
[2024-05-05 12:00] VITALS: BP 135/78; PULSE 68; RESP 19; O2SAT 93
--- NOTE | 2024-05-05 12:50 | RAD_ITS ---
EXAM: XR SOFT TISSUE NECK CLINICAL INDICATION: Throat pain, drooling. TECHNIQUE: Frontal and lateral views of the soft tissues of the neck. COMPARISON: No relevant prior studies available. FINDINGS: AIRWAY: Normal. RETROPHARYNGEAL SPACE: Normal. SOFT TISSUES: Normal. No radiopaque foreign body. Normal epiglottis. RAD/Neck for Soft Tissue IMPRESSION: Normal soft tissue neck. Electronically Signed: Stu Lara MD at 14:20 EST ,
[2024-05-05 13:00] VITALS: BP 137/81; PULSE 70; RESP 18; O2SAT 96
[2024-05-05 13:12] LABS: Absolute Lymphocyte Count 4.81 X10^3/uL (0.83-4.51); Absolute Neutrophil Count 9.2 X10^3/uL (2.0-7.7); Basophil% 0.6 % (0-1); Eosinophil# 0.14 X10^3/uL; Eosinophils% 0.9 % (0-5); Hemoglobin 15.2 g/dL (13.0-16.5); Lymphocyte # 4.81 X10^3/ul (0.83-4.51); Lymphocyte % 30.2 % (19-41); Mean Corp Hgb Conc 34.5 g/dL (32-36); Mean Corpuscular Hgb 32.6 pg (27.0-32.0); Mean Corpuscular Volume 94.4 fL (80-94); Monocyte# 1.61 X10^3/uL; Monocyte% 10.1 % (0-10); NRBC Flagged by Analyzer 0 % (0-5); Neutrophil # 9.17 X10^3/uL (2.7-7.7); Neutrophil % 57.7 % (47-70); POSITIVE DIFFERENTIAL YES; Platelet Count 324 K/mm3 (150-450); RBC Distribution Width CV 12.4 % (11.6-14.6); RBC Distribution Width SD 43.3 fl (35.1-43.9); Red Blood Count 4.66 M/mm3 (4.6-6.2); White Blood Count 15.9 K/mm3 (4.4-11.0)
[2024-05-05 13:27] LABS: Anion Gap 7 (5-15); BUN 20 mg/dL (7-18); Calcium,Total 9.3 mg/dL (8.5-10.1); Chloride 106 mmol/L (98-107); Creatinine, Serum 1.05 mg/dL (0.70-1.30); EST Glomerular Filtration Rate 81 mL/min (>60); Est Glom Filt Rate - Afr Amer 98 mL/min (>60); Estimated Creatinine Clearance 96.19 ml/min; Glucose 99 mg/dL (74-106); Potassium 3.9 mmol/L (3.5-5.1); Sodium Level 138 mmol/L (136-145)
[2024-05-05 13:32] LABS: Differential Indicated SCAN CRITERIA MET
[2024-05-05 14:00] VITALS: BP 138/76; PULSE 72; RESP 21; O2SAT 97
[2024-05-05 14:01] LABS: Differential Comment SCANNED
[2024-05-05 15:00] VITALS: BP 138/76; PULSE 76; RESP 17; TEMP 36.4; O2SAT 97
--- NOTE | 2024-05-05 15:30 | ED.RN ---
pt called in and states that he went to his pharmacy and the magic mouthwash was not avaliable because his pharmacy does not compound. spoke with Dr. Wood in regards to call and he recommended that the pt get over the counter glyoxide and use 2-3 drops 3-5 times a day for 3-5 days and it should be similar. pt states understanding and if it does not help, pt to call back tomorrow to see if [facility] pharmacy can compound it for him. charge nurse notified
[2024-05-06 13:55] LABS: Pathologist Review Reviewed
== END 2024-05-05 15:02 | disposition home or self-care (01) ==
PROVIDERS: Emergency Provider Emergency Medicine; PCP Family Medicine; Visit Provider Emergency Medicine
DX: T78.3XXA Angioneurotic edema, initial encounter (principal); J02.9 Acute pharyngitis, unspecified; E86.0 Dehydration; H10.33 Unspecified acute conjunctivitis, bilateral; F17.290 Nicotine dependence, other tobacco product, uncomplicated; Z88.1 Allergy status to other antibiotic agents; Z88.0 Allergy status to penicillin
CPT/HCPCS: 70360; 80048; 85025; 96365; 96372; 96375; 99283; A4216